=== PATIENT | male | born 1975 | race Caucasian/White ===

== ENCOUNTER 2017-10-25 20:52 | Emergency (ER) | payer OTHER ==
[~2017-10-25] VITALS: Ht 182.9 cm; Wt 83.9 kg
[~2017-10-25 20:52] MED LIST: ALPR1 PO; BETA BLOCKER; BUPR1 PO; BUPR150T2; BUPR150T2 PO; BUSP10 PO; BUSP15 PO; Bactrim Ds Tab1 EACH PO; CEPH500 PO; CLON.1 PO; CLON.2 PO; CLON.5; CLON.5 PO; CLON1 PO; CLON2; CLON2 PO; DIAZ5 PO; DIVA125EC PO; DIVA500EC PO; DIVA500ER PO; ESOM20; GABA100 PO; GABA300; GABA300 PO; Gummi Bear Mul1 EACH PO; HARVONI 90-4001 EACH PO; HYDACE5; HYDACE5 PO; HYDPAM25 PO; HYDPAM50 PO; IBUP600 PO; IBUP800 PO; Kristalose20 GM PO; LACT10SY PO; LAMO5 PO; LITH300C PO; LORA2 PO; Lotrimin Ultra12 GM TP; METH10 PO; METH40 PO; METO25ER PO; METO50 PO; NAPR500 PO; OMEP20ER PO; ONDA4 PO; Omeprazole20 M1 PO; PENVK250 PO; PROM25 PO; QUET100; RXPENVK250 PO; Robaxin-750750 MG PO; SUBTEX PO; SULTRIDS PO; TOPI50 PO; TRAM50 PO; Xanax PO; Zanaflex2 M1 PO
[2017-10-27] MEDS ORDERED: RIFA550T2 (09:13)
[2017-10-27] MEDS ORDERED: Inderal40 MG (09:13)
== END 2017-10-26 02:48 | disposition home or self-care (01) ==
LOC: ER 20:52
DX: G89.29 Other chronic pain (principal); M54.9 Dorsalgia, unspecified; Z88.8 Allergy status to other drugs, medicaments and biological substances; Z79.899 Other long term (current) drug therapy; Z87.891 Personal history of nicotine dependence
CPT/HCPCS: 96372; 99283; J1885

== ENCOUNTER 2017-10-27 08:06 | Emergency (ER) | payer OTHER ==
[~2017-10-27] VITALS: Ht 182.9 cm; Wt 83.9 kg
[2017-10-27] MEDS ORDERED: Inderal40 MG (09:13)
[2017-10-27] MEDS ORDERED: RIFA550T2 (09:13)
[2017-10-27 09:38] LABS: BASOPHILS ABSOLUTE AUTO 0.02 K/mm3 (0.00-0.23); BASOPHILS PERCENT AUTO 0 % (0-2); EOSINOPHILS ABSOLUTE AUTO 0.01 K/mm3 (0.00-0.68); EOSINOPHILS PERCENT AUTO 0 % (0-6); Hematocrit 32.2 % (37.0-53.0); IMMATURE GRAN ABSOLUTE AUTO 0.06 K/mm3 (0.00-0.10); IMMATURE GRAN PERCENT AUTO 0 % (0-1); LYMPHOCYTES ABSOLUTE AUTO 0.61 K/mm3 (0.84-5.20); LYMPHOCYTES PERCENT AUTO 4 % (21-46); MONOCYTES ABSOLUTE AUTO 0.92 K/mm3 (0.16-1.47); MONOCYTES PERCENT AUTO 5 % (4-13); Mean Corpuscular HGB 28.5 pg (26.0-34.0); Mean Corpuscular HGB Conc 34.2 g/dL (31.5-36.5); Mean Corpuscular Volume 83 fL (80-100); Mean Platelet Volume 8.9 fL (9.1-12.4); NEUTROPHILS ABSOLUTE AUTO 15.73 K/mm3 (1.96-9.15); NEUTROPHILS PERCENT AUTO 91 % (41-73); Platelet Count 101 K/mm3 (150-400); RDW Coefficient Variation 15.6 % (11.7-14.2); RDW Standard Deviation 47.5 fL (35.1-46.3); Red Blood Cell Count 3.86 M/mm3 (4.30-5.90); White Blood Cell Count 17.35 K/mm3 (4.00-11.30)
[2017-10-27 09:52] LABS: Alanine Aminotransfer (ALT/SGP 71 U/L (12-78); Albumin/Globulin Ratio 0.6 (0.8-1.8); Alk Phos 344 U/L (50-136); Anion Gap 8 mmol/L (6-16); Aspartate Aminotrans (AST/SGOT 87 U/L (12-37); Blood Urea Nitrogen 8 mg/dL (8-24); Bun/Creatinine Ratio 18.7 (12.0-20.0); CO2, Blood 27 mmol/L (21-32); Calcium, Blood 8.5 mg/dL (8.5-10.1); Chloride, Blood 94 mmol/L (98-108); Creatinine, Blood 0.43 mg/dL (0.60-1.20); Globulin, Blood 5.2 g/dL (2.2-4.0); Glomerular Filtration Rate >60 (60-); Glucose, Blood 95 mg/dL (70-99); Potassium, Blood 3.9 mmol/L (3.5-5.5); Sodium, Blood 129 mmol/L (136-145); Total Protein, Blood 8.2 g/dL (6.4-8.2)
[2017-10-27 10:56] LABS: International Normalized Ratio 1.52
== END 2017-10-27 18:23 | disposition short-term general hospital (02) ==
LOC: ER 08:06
PROVIDERS: Physician Assistant
DX: M46.24 Osteomyelitis of vertebra, thoracic region (principal); M46.44 Discitis, unspecified, thoracic region; M48.04 Spinal stenosis, thoracic region; E87.1 Hypo-osmolality and hyponatremia; R74.0 Nonspecific elevation of levels of transaminase and lactic acid dehydrogenase [LDH]; Z88.8 Allergy status to other drugs, medicaments and biological substances; Z79.899 Other long term (current) drug therapy; F41.9 Anxiety disorder, unspecified; F43.10 Post-traumatic stress disorder, unspecified; Z87.891 Personal history of nicotine dependence
CPT/HCPCS: 36415; 72146; 72148; 80053; 82140; 85025; 85610; 85651; 87040; 87077; 87186; 96374; 96376; 99285; J2060; J2543; J3370; J7050

== ENCOUNTER → 2017-12-08 | Outpatient (CLI) | payer OTHER ==
[~2017-12-08] MED LIST changes: +Inderal40 MG; +RIFA550T2
[2017-12-08 16:22] LABS: Hematocrit 30.3 % (37.0-53.0); Hemoglobin 9.7 g/dL (13.5-17.5); Mean Corpuscular HGB 26.1 pg (26.0-34.0); Mean Corpuscular Volume 82 fL (80-100); Mean Platelet Volume 10.2 fL (9.1-12.4); Platelet Count 88 K/mm3 (150-400); RDW Coefficient Variation 14.4 % (11.7-14.2); RDW Standard Deviation 42.6 fL (35.1-46.3); Red Blood Cell Count 3.71 M/mm3 (4.30-5.90)
[2017-12-08 16:27] LABS: Alanine Aminotransfer (ALT/SGP 25 U/L (12-78); Albumin, Blood 2.4 g/dL (3.4-5.0); Albumin/Globulin Ratio 0.5 (0.8-1.8); Alk Phos 233 U/L (50-136); Anion Gap 6 mmol/L (6-16); Aspartate Aminotrans (AST/SGOT 34 U/L (12-37); Bilirubin, Total 0.7 mg/dL (0.1-1.0); Blood Urea Nitrogen 5 mg/dL (8-24); Bun/Creatinine Ratio 13.3 (12.0-20.0); C-REACTIVE PROTEIN, EXT RANGE 0.617 mg/dL (0.000-0.300); CO2, Blood 30 mmol/L (21-32); Calcium, Blood 7.8 mg/dL (8.5-10.1); Chloride, Blood 101 mmol/L (98-108); Creatinine, Blood 0.38 mg/dL (0.60-1.20); Globulin, Blood 5.3 g/dL (2.2-4.0); Glomerular Filtration Rate >60 (60-); Glucose, Blood 87 mg/dL (70-99); Sodium, Blood 137 mmol/L (136-145); Total Protein, Blood 7.7 g/dL (6.4-8.2)
== END ==
LOC: LAB RH 15:05
PROVIDERS: Nurse Practitioner Family
DX: M46.20 Osteomyelitis of vertebra, site unspecified (principal)
CPT/HCPCS: 80053; 85027; 85651; 86140

== ENCOUNTER 2017-12-23 11:28 | Observation (INO) | payer OTHER ==
[~2017-12-23] VITALS: Ht 182.9 cm; Wt 90.7 kg
[2017-12-23 12:26] LABS: BASOPHILS ABSOLUTE AUTO 0.02 K/mm3 (0.00-0.23); BASOPHILS PERCENT AUTO 1 % (0-2); EOSINOPHILS ABSOLUTE AUTO 0.08 K/mm3 (0.00-0.68); EOSINOPHILS PERCENT AUTO 3 % (0-6); Hematocrit 31.5 % (37.0-53.0); Hemoglobin 9.7 g/dL (13.5-17.5); IMMATURE GRAN ABSOLUTE AUTO 0.01 K/mm3 (0.00-0.10); IMMATURE GRAN PERCENT AUTO 0 % (0-1); LYMPHOCYTES ABSOLUTE AUTO 0.75 K/mm3 (0.84-5.20); LYMPHOCYTES PERCENT AUTO 31 % (21-46); MONOCYTES ABSOLUTE AUTO 0.21 K/mm3 (0.16-1.47); MONOCYTES PERCENT AUTO 9 % (4-13); Mean Corpuscular HGB Conc 30.8 g/dL (31.5-36.5); Mean Corpuscular Volume 81 fL (80-100); Mean Platelet Volume 9.8 fL (9.1-12.4); NEUTROPHILS ABSOLUTE AUTO 1.33 K/mm3 (1.96-9.15); NEUTROPHILS PERCENT AUTO 55 % (41-73); Platelet Count 61 K/mm3 (150-400); RDW Coefficient Variation 14.9 % (11.7-14.2); RDW Standard Deviation 43.5 fL (35.1-46.3); Red Blood Cell Count 3.88 M/mm3 (4.30-5.90)
[2017-12-23 12:49] LABS: Ethanol (Alcohol), Blood, Med <3 mg/dL; Salicylate <1.7 mg/dL (2.8-20.0)
[2017-12-23 12:55] LABS: Alanine Aminotransfer (ALT/SGP 23 U/L (12-78); Albumin/Globulin Ratio 0.6 (0.8-1.8); Alk Phos 166 U/L (50-136); Anion Gap 7 mmol/L (6-16); Aspartate Aminotrans (AST/SGOT 26 U/L (12-37); Bilirubin, Total 0.5 mg/dL (0.1-1.0); Blood Urea Nitrogen 7 mg/dL (8-24); Bun/Creatinine Ratio 15.8 (12.0-20.0); CO2, Blood 28 mmol/L (21-32); Calcium, Blood 7.8 mg/dL (8.5-10.1); Chloride, Blood 103 mmol/L (98-108); Creatinine, Blood 0.44 mg/dL (0.60-1.20); Globulin, Blood 4.9 g/dL (2.2-4.0); Glomerular Filtration Rate >60 (60-); Glucose, Blood 62 mg/dL (70-99); Sodium, Blood 138 mmol/L (136-145); Total Protein, Blood 7.9 g/dL (6.4-8.2)
[2017-12-23 12:58] LABS: Acetaminophen, Random <2.0 ug/mL (10.0-30.0)
== END 2017-12-23 15:01 | disposition home or self-care (01) ==
LOC: ER 11:28 → EOR 11:29
PROVIDERS: Emergency Medicine
DX: R41.82 Altered mental status, unspecified (principal); F41.9 Anxiety disorder, unspecified; G25.81 Restless legs syndrome; F43.10 Post-traumatic stress disorder, unspecified; K74.60 Unspecified cirrhosis of liver; K76.6 Portal hypertension; K31.89 Other diseases of stomach and duodenum; Z86.19 Personal history of other infectious and parasitic diseases
CPT/HCPCS: 36415; 80053; 84443; 85025; 99285; G0378; G0480

== ENCOUNTER → 2018-10-12 | Outpatient (CLI) | payer OTHER | END | disposition home or self-care (01) | LOC: LAB 09:34 → LAB SHORT 09:34 | DX: Z51.81 Encounter for therapeutic drug level monitoring (principal); F90.2 Attention-deficit hyperactivity disorder, combined type; Z79.899 Other long term (current) drug therapy | CPT/HCPCS: G0480 ==

== ENCOUNTER 2018-12-08 20:03 | Emergency (ER) | payer OTHER ==
[~2018-12-08] VITALS: Ht 182.9 cm; Wt 83.9 kg
[2018-12-08] MEDS ORDERED: KETO10 PO (21:13)
== END 2018-12-08 21:35 | disposition home or self-care (01) ==
LOC: ER 20:03
DX: S20.211A Contusion of right front wall of thorax, initial encounter (principal); F41.9 Anxiety disorder, unspecified; Z79.899 Other long term (current) drug therapy; X58.XXXA Exposure to other specified factors, initial encounter
CPT/HCPCS: 71111; 99283-25

== ENCOUNTER 2018-12-15 23:32 | Emergency (ER) | payer OTHER ==
[~2018-12-15] VITALS: Ht 182.9 cm; Wt 83.9 kg
[~2018-12-15 23:32] MED LIST changes: +KETO10 PO
[2018-12-17] MEDS ORDERED: NAPR550 PO (15:36)
== END 2018-12-16 03:21 | disposition home or self-care (01) ==
LOC: ER 23:32
DX: R10.9 Unspecified abdominal pain (principal); R07.81 Pleurodynia; F41.9 Anxiety disorder, unspecified; Z79.899 Other long term (current) drug therapy; Z87.891 Personal history of nicotine dependence
CPT/HCPCS: 99283

== ENCOUNTER 2018-12-17 12:54 | Emergency (ER) | payer OTHER ==
[~2018-12-17] VITALS: Ht 182.9 cm; Wt 83.9 kg
[2018-12-17 13:58] LABS: BASOPHILS ABSOLUTE AUTO 0.05 K/mm3 (0.00-0.23); BASOPHILS PERCENT AUTO 0 % (0-2); EOSINOPHILS ABSOLUTE AUTO 0.02 K/mm3 (0.00-0.68); EOSINOPHILS PERCENT AUTO 0 % (0-6); Hematocrit 40.1 % (37.0-53.0); Hemoglobin 13.9 g/dL (13.5-17.5); IMMATURE GRAN ABSOLUTE AUTO 0.15 K/mm3 (0.00-0.10); IMMATURE GRAN PERCENT AUTO 1 % (0-1); LYMPHOCYTES ABSOLUTE AUTO 1.44 K/mm3 (0.84-5.20); LYMPHOCYTES PERCENT AUTO 8 % (21-46); MONOCYTES PERCENT AUTO 10 % (4-13); Mean Corpuscular HGB 28.1 pg (26.0-34.0); Mean Corpuscular HGB Conc 34.7 g/dL (31.5-36.5); Mean Corpuscular Volume 81 fL (80-100); NEUTROPHILS ABSOLUTE AUTO 14.88 K/mm3 (1.96-9.15); NEUTROPHILS PERCENT AUTO 81 % (41-73); RDW Coefficient Variation 15.2 % (11.7-14.2); RDW Standard Deviation 44.8 fL (35.1-46.3); Red Blood Cell Count 4.94 M/mm3 (4.30-5.90); White Blood Cell Count 18.44 K/mm3 (4.00-11.30)
[2018-12-17 14:03] LABS: Alanine Aminotransfer (ALT/SGP 83 U/L (12-78); Albumin, Blood 3.9 g/dL (3.4-5.0); Alk Phos 164 U/L (50-136); Anion Gap 9 mmol/L (6-16); Aspartate Aminotrans (AST/SGOT 72 U/L (12-37); Bilirubin, Total 1.9 mg/dL (0.1-1.0); Blood Urea Nitrogen 15 mg/dL (8-24); Bun/Creatinine Ratio 20.2 (12.0-20.0); CO2, Blood 25 mmol/L (21-32); Calcium, Blood 8.5 mg/dL (8.5-10.1); Chloride, Blood 94 mmol/L (98-108); Creatinine, Blood 0.74 mg/dL (0.60-1.20); Globulin, Blood 3.9 g/dL (2.2-4.0); Glomerular Filtration Rate >60 (60-); Glucose, Blood 113 mg/dL (70-99); Potassium, Blood 3.6 mmol/L (3.5-5.5); Sodium, Blood 128 mmol/L (136-145); Total Protein, Blood 7.8 g/dL (6.4-8.2)
[2018-12-17 14:27] LABS: Mean Platelet Volume 10.7 fL (9.1-12.4); Platelet Count 81 K/mm3 (150-400)
[2018-12-17] MEDS ORDERED: NAPR550 PO (15:36)
== END 2018-12-17 15:50 | disposition home or self-care (01) ==
LOC: ER 12:54
PROVIDERS: Physician Assistant
DX: S22.31XA Fracture of one rib, right side, initial encounter for closed fracture (principal); X58.XXXA Exposure to other specified factors, initial encounter; F41.9 Anxiety disorder, unspecified; F43.10 Post-traumatic stress disorder, unspecified
CPT/HCPCS: 36415; 74176; 80053; 83690; 85025; 93005; 93010; J1200; J1630

== ENCOUNTER 2018-12-23 08:59 | Inpatient (IN) | payer OTHER ==
[~2018-12-23] VITALS: Ht 182.9 cm; Wt 88.3 kg
[~2018-12-23 08:59] MED LIST changes: +NAPR550 PO
[2018-12-23 09:45] LABS: BASOPHILS ABSOLUTE AUTO 0.09 K/mm3 (0.00-0.23); BASOPHILS PERCENT AUTO 0 % (0-2); EOSINOPHILS PERCENT AUTO 0 % (0-6); Hematocrit 44.2 % (37.0-53.0); Hemoglobin 15.1 g/dL (13.5-17.5); IMMATURE GRAN ABSOLUTE AUTO 0.87 K/mm3 (0.00-0.10); IMMATURE GRAN PERCENT AUTO 3 % (0-1); LYMPHOCYTES ABSOLUTE AUTO 1.17 K/mm3 (0.84-5.20); LYMPHOCYTES PERCENT AUTO 4 % (21-46); MONOCYTES ABSOLUTE AUTO 1.97 K/mm3 (0.16-1.47); MONOCYTES PERCENT AUTO 7 % (4-13); Mean Corpuscular HGB 27.5 pg (26.0-34.0); Mean Corpuscular HGB Conc 34.2 g/dL (31.5-36.5); Mean Corpuscular Volume 80 fL (80-100); Mean Platelet Volume 9.3 fL (9.1-12.4); NEUTROPHILS ABSOLUTE AUTO 24.97 K/mm3 (1.96-9.15); NEUTROPHILS PERCENT AUTO 86 % (41-73); Platelet Count 239 K/mm3 (150-400); RDW Coefficient Variation 15.2 % (11.7-14.2); RDW Standard Deviation 44.1 fL (35.1-46.3); White Blood Cell Count 29.07 K/mm3 (4.00-11.30)
[2018-12-23 10:12] LABS: Alanine Aminotransfer (ALT/SGP 190 U/L (12-78); Albumin, Blood 2.9 g/dL (3.4-5.0); Albumin/Globulin Ratio 0.5 (0.8-1.8); Alk Phos 339 U/L (50-136); Anion Gap 11 mmol/L (6-16); Aspartate Aminotrans (AST/SGOT 162 U/L (12-37); Bilirubin, Total 2.4 mg/dL (0.1-1.0); Blood Urea Nitrogen 18 mg/dL (8-24); Bun/Creatinine Ratio 42.6 (12.0-20.0); CO2, Blood 23 mmol/L (21-32); Chloride, Blood 98 mmol/L (98-108); Creatinine, Blood 0.42 mg/dL (0.60-1.20); Globulin, Blood 5.3 g/dL (2.2-4.0); Glomerular Filtration Rate >60 (60-); Glucose, Blood 99 mg/dL (70-99); Potassium, Blood 3.6 mmol/L (3.5-5.5); Sodium, Blood 132 mmol/L (136-145); Total Protein, Blood 8.2 g/dL (6.4-8.2)
[2018-12-23 10:56] LABS: Source, Urine Clean Catch
[2018-12-23 11:05] LABS: Blood, Urine Neg (Neg); Glucose Qualitative, Urine Neg (Neg); Ketones, Urine 1+ (Neg); Leukocyte Esterase, Urine 1+ (Neg); Nitrite, Urine Neg (Neg); Protein, Urine 2+ (Neg); Specific Gravity, Urine 1.015 (1.003-1.022); Urobilinogen, Urine 4+ (Normal)
[2018-12-23 11:18] LABS: Appearance, Urine Clear (Clear); Bilirubin, Urine 2+ (Neg); Color, Urine Yellow (P-Yellow)
[2018-12-23 11:20] LABS: Red Blood Cells, Urine Not Seen /hpf (0-2); White Blood Cells, Urine 0-2 /hpf (0-5)
[2018-12-23 11:21] LABS: Bacteria Few /hpf; Granular Casts 0-2 /lpf (0); Mucus Light (0-Heavy); Squamous Epithelial Cells Rare /hpf (Few)
[2018-12-23] MEDS ORDERED: FLUO10 (12:24)
[2018-12-23] MEDS ORDERED: BACL10 (12:25)
--- NOTE | 2018-12-23 22:00 | NUR ---
PCU ADMIT PT BROUGHT TO PCU RM 11 FROM THE ER BY ANA @ APPROX 2044. PT SLID OVER FROM [facility] TO HOSPITAL BED. PT STATES HAVING BEEN IN BED THE LAST 5 DAYS UNABLE TO GET UP. PT STATES USING A WALKER AT BASELINE FOR AMBULATION. PT A&O X4, COOPERATIVE. PT C/O PAIN IN LEGS AND HIPS. NARCOTICS DC'D IN ER. PT ADMITS TO USING HEROIN LAST NIGHT AND STATES "I HADN'T DONE IT IN A LONG TIME. IT'S NOT SOMETHING I DO OFTEN." PT STATES SMOKING 5-6 CIGARETTS/DAY. NICOTINE PATCH PROVIDED PER PT REQUEST. IV FLUIDS INFUSING PER ORDERS. PT ORIENTED TO UNIT AND ROOM. WILL CONTINUE TO MONITOR AND PROVIDE CARE.
--- NOTE | 2018-12-24 05:10 | NUR ---
SHIFT SUMMARY PT A&O X4, CALM & COOPERATIVE W/ CARE, TEARFUL AT TIMES. PT C/O PAIN IN LEGS AND HIPS, AND STATES MUSCLES TO BE "LOCKED UP." PT STATES NOT HAVING BEEN OUT OF BED IN LAST 5 DAYS. PT IN NEED OF ENCOURAGEMENT TO REPOSITION AND MOVE. EDUCATION PROVIDED ON PRESSURE ULCER PREVENTION. PT TX'D FOR PAIN PER EMAR. PT REQUESTING REPEAT OF MEDICATIONS SHORTLY AFTER ADMINISTRATION. PT TEARFUL AND STATES MEDICATION "NOT ENOUGH" AND ASKS "WHAT AM I GOING TO DO?" COMFORT PROVIDED ALONG W/ ALTERNATING PRN AND SCHEDULED MEDICATIONS. OTHERWISE PT VSS. LUNG SOUNDS CLEAR T/O, DIM IN BASES. SPO2 > 92% ON RA. MONITOR SHOWS NSR, HR 70'S-80'S. NS GTT INFUSING PER ORDERS. WILL CONTINUE TO MONITOR AND PROVIDE CARE UNTIL REPORT OFF TO DAY SHIFT RN.
[2018-12-24 06:17] LABS: BASOPHILS ABSOLUTE AUTO 0.02 K/mm3 (0.00-0.23); BASOPHILS PERCENT AUTO 0 % (0-2); EOSINOPHILS ABSOLUTE AUTO 0.07 K/mm3 (0.00-0.68); EOSINOPHILS PERCENT AUTO 0 % (0-6); Hematocrit 35.2 % (37.0-53.0); Hemoglobin 11.7 g/dL (13.5-17.5); IMMATURE GRAN ABSOLUTE AUTO 0.23 K/mm3 (0.00-0.10); IMMATURE GRAN PERCENT AUTO 1 % (0-1); LYMPHOCYTES ABSOLUTE AUTO 1.59 K/mm3 (0.84-5.20); LYMPHOCYTES PERCENT AUTO 9 % (21-46); MONOCYTES ABSOLUTE AUTO 1.36 K/mm3 (0.16-1.47); MONOCYTES PERCENT AUTO 8 % (4-13); Mean Corpuscular HGB 27.8 pg (26.0-34.0); Mean Corpuscular HGB Conc 33.2 g/dL (31.5-36.5); Mean Platelet Volume 9.1 fL (9.1-12.4); NEUTROPHILS ABSOLUTE AUTO 13.69 K/mm3 (1.96-9.15); NEUTROPHILS PERCENT AUTO 81 % (41-73); Platelet Count 151 K/mm3 (150-400); RDW Coefficient Variation 15.3 % (11.7-14.2); RDW Standard Deviation 46.5 fL (35.1-46.3); Red Blood Cell Count 4.21 M/mm3 (4.30-5.90); White Blood Cell Count 16.96 K/mm3 (4.00-11.30)
[2018-12-24 06:18] LABS: Mean Corpuscular Volume 84 fL (80-100)
[2018-12-24 06:43] LABS: Alanine Aminotransfer (ALT/SGP 137 U/L (12-78); Albumin, Blood 2.1 g/dL (3.4-5.0); Albumin/Globulin Ratio 0.5 (0.8-1.8); Alk Phos 277 U/L (50-136); Anion Gap 6 mmol/L (6-16); Aspartate Aminotrans (AST/SGOT 129 U/L (12-37); Blood Urea Nitrogen 16 mg/dL (8-24); Bun/Creatinine Ratio 47.9 (12.0-20.0); CO2, Blood 25 mmol/L (21-32); Calcium, Blood 7.8 mg/dL (8.5-10.1); Chloride, Blood 103 mmol/L (98-108); Creatinine, Blood 0.33 mg/dL (0.60-1.20); Globulin, Blood 4.2 g/dL (2.2-4.0); Glomerular Filtration Rate >60 (60-); Glucose, Blood 107 mg/dL (70-99); Sodium, Blood 134 mmol/L (136-145); Total Protein, Blood 6.3 g/dL (6.4-8.2)
--- NOTE | 2018-12-24 08:00 | NUR ---
Assumed Care: Assumed care of pt at approx 0700. VSS. In no apparent sign of distress. Pt is A&Ox4 but drowsy - falls asleep while answering questions at times. Pt c/o 9/10 constant pain to hips and back. Pt calls appropriately. C/o difficulty moving extremities but pt is able to DUNCAN. Pt needs encouragement to move and reposition in bed, and will be assisted PRN. See shift assessment for detailed assessment. Pt currently sitting up in bed eating breakfast. Denies any other acute complaints or requests at this time. Will continue to monitor.
[2018-12-24 11:18] LABS: U Amphetamine Screen DETECTED; U Barbituate Screen Not Detected; U Benzodiazapine Screen DETECTED; U Buprenorphine Screen Not Detected; U Cannabinoids Screen DETECTED; U Cocaine Screen Not Detected; U Methadone Screen DETECTED; U Methamphetamine Screen DETECTED; U Opiates Screen DETECTED; U Oxycodone Screen Not Detected; U Phencyclidine Screen Not Detected; U Propoxyphene Screen Not Detected
[2018-12-24 11:48] LABS: Vancomycin, Trough 7.4 ug/mL (5.0-10.0)
--- NOTE | 2018-12-24 19:48 | NUR ---
Shift Summary No acute changes since initial shift assessment. VSS. In no apparent sign of distress. Pt has remained A&Ox4. Calls appropriately and repositions self. EGD completed today and Dr. Mcginnis to place new orders for ulcers found during study. Pt on RA-2L O2 NC t/o the shift depending on activity and is on 2L O2 NC post study. Pt has otherwise had an uneventful day. Pt has not had any more hemoptysis. Pt has at times coughed up red tinged sputum - sample sent today. No acute changes or events on tele. Pt is currenlty resting in bed with call light within reach and bed alarm on. Tolerating PO intake well. Denies any further questions, complaints or requests at this time. Report given to jack SANTIAGO.
[2018-12-25 06:02] LABS: BASOPHILS ABSOLUTE AUTO 0.02 K/mm3 (0.00-0.23); BASOPHILS PERCENT AUTO 0 % (0-2); EOSINOPHILS ABSOLUTE AUTO 0.08 K/mm3 (0.00-0.68); EOSINOPHILS PERCENT AUTO 1 % (0-6); Hemoglobin 11.1 g/dL (13.5-17.5); IMMATURE GRAN ABSOLUTE AUTO 0.12 K/mm3 (0.00-0.10); IMMATURE GRAN PERCENT AUTO 1 % (0-1); LYMPHOCYTES ABSOLUTE AUTO 1.08 K/mm3 (0.84-5.20); LYMPHOCYTES PERCENT AUTO 12 % (21-46); MONOCYTES ABSOLUTE AUTO 0.65 K/mm3 (0.16-1.47); MONOCYTES PERCENT AUTO 7 % (4-13); Mean Corpuscular HGB 27.7 pg (26.0-34.0); Mean Corpuscular HGB Conc 32.6 g/dL (31.5-36.5); Mean Corpuscular Volume 85 fL (80-100); Mean Platelet Volume 8.6 fL (9.1-12.4); NEUTROPHILS ABSOLUTE AUTO 7.07 K/mm3 (1.96-9.15); NEUTROPHILS PERCENT AUTO 78 % (41-73); Platelet Count 139 K/mm3 (150-400); RDW Coefficient Variation 14.7 % (11.7-14.2); RDW Standard Deviation 46.1 fL (35.1-46.3); Red Blood Cell Count 4.01 M/mm3 (4.30-5.90); White Blood Cell Count 9.02 K/mm3 (4.00-11.30)
[2018-12-25 06:26] LABS: Alanine Aminotransfer (ALT/SGP 106 U/L (12-78); Albumin, Blood 2.1 g/dL (3.4-5.0); Albumin/Globulin Ratio 0.5 (0.8-1.8); Alk Phos 252 U/L (50-136); Anion Gap 6 mmol/L (6-16); Aspartate Aminotrans (AST/SGOT 77 U/L (12-37); Blood Urea Nitrogen 13 mg/dL (8-24); Bun/Creatinine Ratio 32.1 (12.0-20.0); CO2, Blood 29 mmol/L (21-32); Calcium, Blood 7.9 mg/dL (8.5-10.1); Chloride, Blood 100 mmol/L (98-108); Creatinine, Blood 0.41 mg/dL (0.60-1.20); Globulin, Blood 4.3 g/dL (2.2-4.0); Glomerular Filtration Rate >60 (60-); Glucose, Blood 89 mg/dL (70-99); Potassium, Blood 4.2 mmol/L (3.5-5.5); Sodium, Blood 135 mmol/L (136-145); Total Protein, Blood 6.4 g/dL (6.4-8.2)
--- NOTE | 2018-12-25 07:29 | NUR ---
SHIFT SUMMARY PT A&O X4, CALM AND COOPERATIVE W/ EPISODES OF ANXIETY AND TEARFULNESS. PT C/O 08/03 PAIN T/O SHIFT. PT'D MEDICATED PER EMAR W/ MINIMAL RELIEF. NO OPIATE MEDICATIONS ORDERED FOR PT AT THIS TIME. PT ANXIOUS, ASKING "HOW LONG AM I GOING TO BE LEFT LIKE THIS?" TIME SPENT CONVERSING W/ PT DISCUSSING PLAN OF CARE AND AWAITING ORDERED ORTHO CONSULT. PT LUNG SOUNDS CLEAR T/O, SPO2 > 92% ON RA. MONITOR SHOWS NSR, HR 60'S-80'S. PT VSS. REPORT GIVEN TO DAY SHIFT RN.
--- NOTE | 2018-12-25 08:51 | NUR ---
Assumed Care: Assumed care of pt at approx 0700. VSS. In no apparent sign of distress. Pt is A&Ox4 but experiences some intermittent drowsiness. Calls appropriately and needs lots of motivation to reposition in bed, but is moving better today. C/o continued pain today in hips and knees this AM. See shift assessment for detailed assessment. Denies any SOB or cough. Pt is currently resting in bed with call light within reach. Denies any further questions, complaints or requests at this time except for more pain medication. Will continue to monitor.
[2018-12-25 11:48] LABS: Vancomycin, Trough 10.3 ug/mL (5.0-10.0)
--- NOTE | 2018-12-25 16:03 | NUR ---
Transfer: Pt transferred to room 301 at approx 1430. VSS. In no apparent sign of distress at time of transfer. No acute changes since initial shift assessment. Istrate in to see pt and will place orders for medications once he reviews the pts chart. Pt continues to behave in manner that resembles being under the influence of substances and has visitors t/o the day yesterday and today. Pt now supervised when he has visitiors in the room for pt safety. Pt denies any further questions, complaints or requests at this time. Report called to Kevin SANTIAGO.
--- NOTE | 2018-12-25 18:06 | NUR ---
PCU 11 TRANSFER TO 301 APPROX 1500 TODAY. PT IS A/O X4, STATE UNABLE TO AMBULATE @ THIS TIME, STATE "CRAMPING" MUSCLE PAIN BLE, PRN ROBAXIN GIVEN FOR RELEIF. DX SEPSIS, WBC WNL TODAY, VSS, AFEBRILE. IV NS CONTINUES @ 150 ML/HR. IV ANTIBX CONTINUE. HEAD ANIMAL KEEPER REPORT THAT SHE CALLED CONSULT TO DR ARIZMENDI TODAY. PT ASSISTED WITH COMFORT, PLEASANT APPRECIATIVE AFFECT.
--- NOTE | 2018-12-26 04:43 | NUR ---
SHIFT SUMMARY NO ACUTE CHANGES. PT PLEASANT AND COOPERATIVE. EMOTIONAL AND TEARFUL AT TIMES ABOUT CURRENT MEDICAL CONDITIONS. PT REPORTS THAT HE IS UNABLE TO WALK AT THIS TIME. REMAINED IN BED THIS SHIFT. REPORTS PAIN THROUGHOUT BODY DESCRIBED BEING LOCATED "IN HIS BONES". PT HAS A HX OF IV DRUG USE AND HAS A SPECIFIC ORDER TO NOT HAVE ANY OPIATES. TYLENOL AND ROBAXIN GIVEN ORDERED. PT SLEEPY MUCH OF THE SHIFT. SLEPT OFF AND ON THROUGHOUT THE NIGHT. PT LOOKING FORWARD TO LAND USE PLANNER MEETING WITH HIM TODAY TO MAKE PLANS FOR WHEN HE IS READY TO DISCHARGE. PT IS HOPING TO DISCHARGE TO REHAB. VSS. NO BM'S THIS SHIFT. REAVES CATHETER IN PLACE, PATENT AND DRAINING. PT RESTING IN BED AT THIS TIME.
[2018-12-26 08:44] LABS: BASOPHILS ABSOLUTE AUTO 0.02 K/mm3 (0.00-0.23); BASOPHILS PERCENT AUTO 0 % (0-2); EOSINOPHILS ABSOLUTE AUTO 0.05 K/mm3 (0.00-0.68); EOSINOPHILS PERCENT AUTO 1 % (0-6); Hematocrit 33.9 % (37.0-53.0); IMMATURE GRAN ABSOLUTE AUTO 0.05 K/mm3 (0.00-0.10); IMMATURE GRAN PERCENT AUTO 1 % (0-1); LYMPHOCYTES ABSOLUTE AUTO 0.86 K/mm3 (0.84-5.20); LYMPHOCYTES PERCENT AUTO 14 % (21-46); MONOCYTES ABSOLUTE AUTO 0.51 K/mm3 (0.16-1.47); MONOCYTES PERCENT AUTO 8 % (4-13); Mean Corpuscular HGB 27.2 pg (26.0-34.0); Mean Corpuscular HGB Conc 32.4 g/dL (31.5-36.5); Mean Corpuscular Volume 84 fL (80-100); Mean Platelet Volume 8.7 fL (9.1-12.4); NEUTROPHILS ABSOLUTE AUTO 4.62 K/mm3 (1.96-9.15); NEUTROPHILS PERCENT AUTO 76 % (41-73); Platelet Count 141 K/mm3 (150-400); RDW Coefficient Variation 14.5 % (11.7-14.2); RDW Standard Deviation 44.5 fL (35.1-46.3); Red Blood Cell Count 4.05 M/mm3 (4.30-5.90); White Blood Cell Count 6.11 K/mm3 (4.00-11.30)
[2018-12-26 09:01] LABS: Alanine Aminotransfer (ALT/SGP 86 U/L (12-78); Albumin/Globulin Ratio 0.5 (0.8-1.8); Alk Phos 249 U/L (50-136); Anion Gap 5 mmol/L (6-16); Aspartate Aminotrans (AST/SGOT 56 U/L (12-37); Bilirubin, Total 0.5 mg/dL (0.1-1.0); Blood Urea Nitrogen 8 mg/dL (8-24); Bun/Creatinine Ratio 25.4 (12.0-20.0); CO2, Blood 31 mmol/L (21-32); Calcium, Blood 7.7 mg/dL (8.5-10.1); Chloride, Blood 99 mmol/L (98-108); Creatinine, Blood 0.32 mg/dL (0.60-1.20); Globulin, Blood 4.4 g/dL (2.2-4.0); Glomerular Filtration Rate >60 (60-); Glucose, Blood 126 mg/dL (70-99); Potassium, Blood 3.8 mmol/L (3.5-5.5); Sodium, Blood 135 mmol/L (136-145); Total Protein, Blood 6.4 g/dL (6.4-8.2)
[2018-12-26 11:39] LABS: Vancomycin, Trough 9.2 ug/mL (5.0-10.0)
--- NOTE | 2018-12-26 14:31 | NUR ---
PT REAVES NOT REMOVED- SPOKE TO PT ABOUT REAVES REMOVAL AND HE BECAME VERY ANXIOUS AND FEARFUL; BEGAN TO CRY ABOUT FEAR OF NOT BEING ABLE TO PEE. SPOKE TO DR SELBY AND HE STATED OK TO LEAVE REAVES IN PLACE AT THIS TIME.
--- NOTE | 2018-12-26 17:28 | NUR ---
Today (12/26/18) this patient gave this chief nursing executive verbal consent to access necessary information and care for patient tomorrow (12/27/18) from [phone]
--- NOTE | 2018-12-26 19:31 | NUR ---
SHIFT SUMMARY- PT VERY TEARFUL AND WHEN FACED WITH THE PLANNED MRI OF THE NECK PT STATED HE SHOULD HAVE IV ATIVAN AND DILAUDID "THATS WHAT THEY DID LAST TIME." PT HAS Hx SUBSTANCE ABUSE AND IS NOT CURRENTLY RECIEVING ANY OPIATES. SPOKE TO DR SELBY, PT VERY LETHARGIC AND OFTEN FALLS ASLEEP WHILE TALKING TO STAFF, PT STATED HIS HOME DOSE OF GABAPENTIN IS [address] CHANGED GABAPENTIN ORDER TO MATCH THE HOME DOSE. PT RECIEVING PO TYLENOL AND METHOCARBOMOL FOR PAIN AND MUSCLE CRAMPING.
--- NOTE | 2018-12-27 05:44 | NUR ---
VSS, AFEBRILE, A/O, C/O NECK PAIN/STIFFNESS, AND NUMBNESS BELOW THE WAIST. POWERGLIDE IN R UA IS POSITIONAL AND OCCULDES OFTEN IF HE MOVES HIS ARM. PMHX OF IV DRUG USE PREVENTS NARCOTIC USE FOR PAIN CONTROL. PT SEEKS OUT OPPORTUNITIES TO GAIN ATTENTION FROM STAFF BY MAKING HIS PUMP ALARM REPEATEDLY FOR HOURS. PUMP RARELY ALARMS WHEN PT IS ASLEEP. SLEPT LIGHTLY OFF AND ON ALL NOC.
[2018-12-27 06:45] LABS: BASOPHILS ABSOLUTE AUTO 0.01 K/mm3 (0.00-0.23); BASOPHILS PERCENT AUTO 0 % (0-2); EOSINOPHILS ABSOLUTE AUTO 0.06 K/mm3 (0.00-0.68); EOSINOPHILS PERCENT AUTO 1 % (0-6); Hematocrit 31.9 % (37.0-53.0); Hemoglobin 10.4 g/dL (13.5-17.5); IMMATURE GRAN ABSOLUTE AUTO 0.05 K/mm3 (0.00-0.10); IMMATURE GRAN PERCENT AUTO 1 % (0-1); LYMPHOCYTES ABSOLUTE AUTO 0.73 K/mm3 (0.84-5.20); LYMPHOCYTES PERCENT AUTO 15 % (21-46); MONOCYTES ABSOLUTE AUTO 0.49 K/mm3 (0.16-1.47); MONOCYTES PERCENT AUTO 10 % (4-13); Mean Corpuscular HGB 27.3 pg (26.0-34.0); Mean Corpuscular HGB Conc 32.6 g/dL (31.5-36.5); Mean Corpuscular Volume 84 fL (80-100); Mean Platelet Volume 8.6 fL (9.1-12.4); NEUTROPHILS ABSOLUTE AUTO 3.57 K/mm3 (1.96-9.15); NEUTROPHILS PERCENT AUTO 73 % (41-73); Platelet Count 137 K/mm3 (150-400); RDW Coefficient Variation 14.4 % (11.7-14.2); Red Blood Cell Count 3.81 M/mm3 (4.30-5.90); White Blood Cell Count 4.91 K/mm3 (4.00-11.30)
[2018-12-27 07:10] LABS: Alanine Aminotransfer (ALT/SGP 67 U/L (12-78); Albumin, Blood 1.9 g/dL (3.4-5.0); Albumin/Globulin Ratio 0.4 (0.8-1.8); Alk Phos 224 U/L (50-136); Anion Gap 5 mmol/L (6-16); Aspartate Aminotrans (AST/SGOT 42 U/L (12-37); Bilirubin, Total 0.5 mg/dL (0.1-1.0); Blood Urea Nitrogen 6 mg/dL (8-24); Bun/Creatinine Ratio 19.8 (12.0-20.0); CO2, Blood 31 mmol/L (21-32); Calcium, Blood 7.8 mg/dL (8.5-10.1); Chloride, Blood 101 mmol/L (98-108); Globulin, Blood 4.4 g/dL (2.2-4.0); Glomerular Filtration Rate >60 (60-); Glucose, Blood 113 mg/dL (70-99); Potassium, Blood 3.9 mmol/L (3.5-5.5); Sodium, Blood 137 mmol/L (136-145); Total Protein, Blood 6.3 g/dL (6.4-8.2)
--- NOTE | 2018-12-27 11:49 | NUR ---
PT STATES "ACTUALLY MY NECK FEELS A LOT BETTER, I DON'T WANT TO GO THROUGH AN MRI". REPORTED TO DR. SELBY
[2018-12-27 13:13] LABS: Vancomycin, Trough 1.6 ug/mL (5.0-10.0)
--- NOTE | 2018-12-27 17:59 | NUR ---
SHIFT SUMMARY OX3; OSTEOMYELITIS; INCREASED PAIN WITH MOVEMENT REPORTS "I CAN'T STAND UP NOW" RAEVES DISCONTINUED. HX OF IV DRUG ABUSE. COOPERATIVE, CALM. BEDREST. USING BEDPAN AND URINAL WELL. POSSIBLE DC TO [facility] TOMORROW OR WHEN BED AVAILABLE.
--- NOTE | 2018-12-27 22:58 | NUR ---
PT INSISTS THAT HE CANNOT WALK AND HAS NOT DONE SO FOR A FEW WEEKS. HIS IMAGING STUDIES ARE NEGATIVE FOR OBVIOUS DAMAGE. PT STATES THAT "I'M TRYING TO GET BACK ON METHADONE SO THAT I CAN WALK INTO AN ADDICTION RECOVERY PROGRAM." PT APPEARS TO CONNECT HIS INABILITY TO WALK/MUSCLE SPASMS AND BACK PAIN WITH HIS DESIRE FOR METHODONE. HIS LOGIC IS UNCLEAR AND DIFFICULT TO FOLLOW. AND YET HE MOANS LOUDLY WHEN HE IS ALONE IN HIS ROOM. PT DOES NOT HAVE NARCOTIC MEDICATION FOR PAIN BEAUSE OF HIS PMHX OF IV DRUG USE. METHOCARBIMOL, TYLENOL AND PHENERGAN DO NOT APPEAR TO PROVIDE THE RELIEF THAT HE IS SEEKING. PT WILL ALSO MANIPULATE THE IV TUBING TO MAKE THE PUMP ALARM FREQUENTLY WHILE HE IS AWAKE. THE PUMP DOES NOT ALARM WHILE HE IS ASLEEP. WILL CONTINUE TO MONITOR.
--- NOTE | 2018-12-28 05:14 | NUR ---
VSS, AFEBRILE, A/O, POWERGLIDE IN R UA, C/O INTERMITTENED CRAMPS/SPASMS IN LE AND LOWER BACK. PT REPORTS BEING UNABLE TO STAND OR WALK. PT CAN BE EMOTIONAL AT TIMES, MAKES VAGUE REQUESTS "WHAT KIND OF MEDICATION CAN I GET NOW?" WITHOUT IDENTIFYING THE COMPLAINT FIRST. PT INSISTS THAT HE WAS BEING GIVEN TORADOL IVP BUT THAT MEDICATION HAS NOT BEEN AVAILABLE DURING THIS ADMISSION. PT TOLERATING IV ATBX W/OUT ADVERSE EFFECTS.
[2018-12-28 05:19] LABS: BASOPHILS ABSOLUTE AUTO 0.02 K/mm3 (0.00-0.23); BASOPHILS PERCENT AUTO 0 % (0-2); EOSINOPHILS ABSOLUTE AUTO 0.06 K/mm3 (0.00-0.68); EOSINOPHILS PERCENT AUTO 1 % (0-6); Hematocrit 35.3 % (37.0-53.0); Hemoglobin 11.3 g/dL (13.5-17.5); IMMATURE GRAN ABSOLUTE AUTO 0.08 K/mm3 (0.00-0.10); IMMATURE GRAN PERCENT AUTO 2 % (0-1); LYMPHOCYTES ABSOLUTE AUTO 0.93 K/mm3 (0.84-5.20); LYMPHOCYTES PERCENT AUTO 17 % (21-46); MONOCYTES ABSOLUTE AUTO 0.82 K/mm3 (0.16-1.47); MONOCYTES PERCENT AUTO 15 % (4-13); Mean Corpuscular HGB 27.4 pg (26.0-34.0); Mean Corpuscular Volume 86 fL (80-100); Mean Platelet Volume 9.3 fL (9.1-12.4); NEUTROPHILS ABSOLUTE AUTO 3.51 K/mm3 (1.96-9.15); NEUTROPHILS PERCENT AUTO 65 % (41-73); Platelet Count 157 K/mm3 (150-400); RDW Coefficient Variation 14.2 % (11.7-14.2); RDW Standard Deviation 44.3 fL (35.1-46.3); Red Blood Cell Count 4.13 M/mm3 (4.30-5.90); White Blood Cell Count 5.42 K/mm3 (4.00-11.30)
[2018-12-28 05:46] LABS: Alanine Aminotransfer (ALT/SGP 69 U/L (12-78); Albumin, Blood 2.1 g/dL (3.4-5.0); Albumin/Globulin Ratio 0.4 (0.8-1.8); Alk Phos 266 U/L (50-136); Anion Gap 7 mmol/L (6-16); Aspartate Aminotrans (AST/SGOT 50 U/L (12-37); Bilirubin, Total 0.9 mg/dL (0.1-1.0); Blood Urea Nitrogen 9 mg/dL (8-24); Bun/Creatinine Ratio 26.7 (12.0-20.0); CO2, Blood 31 mmol/L (21-32); Chloride, Blood 99 mmol/L (98-108); Creatinine, Blood 0.34 mg/dL (0.60-1.20); Globulin, Blood 4.8 g/dL (2.2-4.0); Glomerular Filtration Rate >60 (60-); Glucose, Blood 99 mg/dL (70-99); Potassium, Blood 4.1 mmol/L (3.5-5.5); Sodium, Blood 137 mmol/L (136-145); Total Protein, Blood 6.9 g/dL (6.4-8.2)
--- NOTE | 2018-12-28 19:02 | NUR ---
SHIFT SUMMARY MRI AND XRAYS COMPLETED TODAY. C/O PAIN ALL OVER UNRELEIVED BY CURRENT MEDS ORDERED. REQUESTING TO BE DISCHARGED TO FACILITY WHERE HE CAN BE PLACED BACK ON METHADONE. ATE SEVERAL SNACKS TODAY AND TAKING FLUIDS WELL. JD MUSA JUNIOR ART DIRECTOR WORKING ON PLACEMENT. INCREASED INCREASE. PAIN WITH EVEN VERY SLIGHT PASSIVE MOVEMENTS.
--- NOTE | 2018-12-29 05:16 | NUR ---
VSS, AFEBRILE, A/O, SLEPT WELL LAST NIGIT. FEW CALLS OR COMPLAINTS. PT IS STABLE AT THIS TIME.
[2018-12-29 05:50] LABS: BASOPHILS ABSOLUTE AUTO 0.03 K/mm3 (0.00-0.23); BASOPHILS PERCENT AUTO 1 % (0-2); EOSINOPHILS ABSOLUTE AUTO 0.08 K/mm3 (0.00-0.68); EOSINOPHILS PERCENT AUTO 1 % (0-6); Hematocrit 36.1 % (37.0-53.0); Hemoglobin 11.7 g/dL (13.5-17.5); IMMATURE GRAN ABSOLUTE AUTO 0.06 K/mm3 (0.00-0.10); IMMATURE GRAN PERCENT AUTO 1 % (0-1); LYMPHOCYTES ABSOLUTE AUTO 1.26 K/mm3 (0.84-5.20); LYMPHOCYTES PERCENT AUTO 20 % (21-46); MONOCYTES ABSOLUTE AUTO 0.67 K/mm3 (0.16-1.47); MONOCYTES PERCENT AUTO 11 % (4-13); Mean Corpuscular HGB 27.3 pg (26.0-34.0); Mean Corpuscular HGB Conc 32.4 g/dL (31.5-36.5); Mean Corpuscular Volume 84 fL (80-100); Mean Platelet Volume 8.9 fL (9.1-12.4); NEUTROPHILS ABSOLUTE AUTO 4.13 K/mm3 (1.96-9.15); NEUTROPHILS PERCENT AUTO 66 % (41-73); Platelet Count 155 K/mm3 (150-400); RDW Coefficient Variation 14.4 % (11.7-14.2); RDW Standard Deviation 44.2 fL (35.1-46.3); Red Blood Cell Count 4.28 M/mm3 (4.30-5.90); White Blood Cell Count 6.23 K/mm3 (4.00-11.30)
[2018-12-29] MEDS ORDERED: METCAR500 PO (16:38)
[2018-12-29] MEDS ORDERED: Prozac20 MG PO (16:38)
[2018-12-29] MEDS ORDERED: GABA300 PO (16:39)
[2018-12-29] MEDS ORDERED: ACET325 PO (16:39)
[2018-12-29] MEDS ORDERED: Bisac-Evac10 MG PR (16:40)
[2018-12-29] MEDS ORDERED: CALCIUM 500 +1 EAC3 PO (16:41)
[2018-12-29] MEDS ORDERED: Amoxicillin500 M1 PO (16:43)
[2018-12-29] MEDS ORDERED: DOCU100 PO (16:44)
[2018-12-29] MEDS ORDERED: LIDOCARE1 EACH TOP (16:45)
[2018-12-29] MEDS ORDERED: ONDA4ODT MM (16:46)
[2018-12-29] MEDS ORDERED: NICO21TP TOP (16:46)
[2018-12-29] MEDS ORDERED: OLAN5 PO (16:46)
[2018-12-29] MEDS ORDERED: SACC250C PO (16:47)
--- NOTE | 2018-12-29 18:33 | NUR ---
discharge PT CONTINUES TO STATE UNABLE TO BR WT OR AMBULATE R/T LEP CRAMPS & PAIN. HE CONTINUES TO REFUSE PHYTHER. CLINICAL PROVIDER TRAINER EXPLAIN TO PT & FAMILY THAT REHAB IS NOT AN OPTION FOR VARIOUS REASONS. DR SELBY EXPLAIN TO PT THAT ALL TEST ARE NEGATIVE, SEPSIS HAS RESOLVED & THAT HE MAY GO HOME TODAY WITH HOME HEALTH. INITIALLY FAMILY STATE INABILITY TO CARE FOR HIM @ HOME BUT RELUCTANTLY AGREE AFTER CONVERSATION WITH ELECTROPLATER HELPER. PT WAS INITIALLY EMOTIONAL HOWEVER HAS CALMED IS ACCEPTING D/C. DR SELBY PROVIDE ORDER FOR W/C. SCRIPTS FAXED TO [facility]. D/C INSTRUCT PROVIDED W EMPHASIS ON F/U W PCP. PWERGLIDE IV D/C INTACT. GURNEY TRANSPORTATION ARRANGED BY CLINICAL PROVIDER TRAINER FOR 1829. RIB TRIM SEPARATOR ASSIST HIM TO DRESS & GATHER BELONGINGS. PT IS PLEASANT & SMILING @ THIS TIME.
== END 2018-12-29 19:30 | disposition home or self-care (01) | DRG 872 ==
LOC: ER 08:59 → PCU 16:15 → ERHOLD 16:15 → MEDS 16:15 → PCU 20:45 → MEDS 12-25 14:28
PROVIDERS: Emergency Medicine; ADMIT Family Medicine
DX: A40.9 Streptococcal sepsis, unspecified (principal); E87.1 Hypo-osmolality and hyponatremia; F15.20 Other stimulant dependence, uncomplicated; F41.9 Anxiety disorder, unspecified; F43.10 Post-traumatic stress disorder, unspecified; Z87.891 Personal history of nicotine dependence; B19.20 Unspecified viral hepatitis C without hepatic coma; G25.81 Restless legs syndrome; Z94.5 Skin transplant status; R74.0 Nonspecific elevation of levels of transaminase and lactic acid dehydrogenase [LDH]; K74.60 Unspecified cirrhosis of liver; Z99.3 Dependence on wheelchair; F11.10 Opioid abuse, uncomplicated; M54.5 Low back pain; R39.198 Other difficulties with micturition; M25.552 Pain in left hip; M25.551 Pain in right hip
CPT/HCPCS: 36415; 51702; 71045; 71046; 72100; 72156; 72157; 72158; 73523; 80053; 80202; 81001; 83605; 83690; 85025; 85651; 86140; 87040; 87086; 87147; 90686; 93005; 93010; 93306; 96374-59; 96375-59; 97110; 97162; 97166; 97530; 99285-25; A9577; C1751; G0008; J0696; J1170; J1650; J1885; J2060; J2185; J2405; J2543; J3370; J7030; J7050; Q0163

== ENCOUNTER → 2019-01-31 | Outpatient (CLI) | payer OTHER ==
[~2019-01-31] MED LIST changes: +ACET325 PO; +Amoxicillin500 M1 PO; +BACL10; +Bisac-Evac10 MG PR; +CALCIUM 500 +1 EAC3 PO; +DOCU100 PO; +FLUO10; +LIDOCARE1 EACH TOP; +METCAR500 PO; +NICO21TP TOP; +OLAN5 PO; +ONDA4ODT MM; +Prozac20 MG PO; +SACC250C PO
[2019-01-31 10:40] LABS: BASOPHILS ABSOLUTE AUTO 0.02 K/mm3 (0.00-0.23); BASOPHILS PERCENT AUTO 1 % (0-2); EOSINOPHILS ABSOLUTE AUTO 0.08 K/mm3 (0.00-0.68); EOSINOPHILS PERCENT AUTO 2 % (0-6); Hematocrit 36.6 % (37.0-53.0); Hemoglobin 11.6 g/dL (13.5-17.5); IMMATURE GRAN ABSOLUTE AUTO 0.02 K/mm3 (0.00-0.10); IMMATURE GRAN PERCENT AUTO 1 % (0-1); LYMPHOCYTES ABSOLUTE AUTO 0.96 K/mm3 (0.84-5.20); LYMPHOCYTES PERCENT AUTO 24 % (21-46); MONOCYTES ABSOLUTE AUTO 0.31 K/mm3 (0.16-1.47); MONOCYTES PERCENT AUTO 8 % (4-13); Mean Corpuscular HGB 26.5 pg (26.0-34.0); Mean Corpuscular HGB Conc 31.7 g/dL (31.5-36.5); Mean Corpuscular Volume 84 fL (80-100); Mean Platelet Volume 9.2 fL (9.1-12.4); NEUTROPHILS ABSOLUTE AUTO 2.57 K/mm3 (1.96-9.15); NEUTROPHILS PERCENT AUTO 65 % (41-73); Platelet Count 108 K/mm3 (150-400); RDW Coefficient Variation 14.1 % (11.7-14.2); RDW Standard Deviation 42.5 fL (35.1-46.3); Red Blood Cell Count 4.37 M/mm3 (4.30-5.90); White Blood Cell Count 3.96 K/mm3 (4.00-11.30)
[2019-01-31 10:41] LABS: Bilirubin, Urine Neg (Neg); Blood, Urine Neg (Neg); Glucose Qualitative, Urine Neg (Neg); Ketones, Urine Neg (Neg); Leukocyte Esterase, Urine Neg (Neg); Nitrite, Urine Neg (Neg); Protein, Urine Neg (Neg); Specific Gravity, Urine 1.015 (1.003-1.022); Urobilinogen, Urine 1+ (Normal)
[2019-01-31 10:44] LABS: Appearance, Urine Clear (Clear); Color, Urine Yellow (P-Yellow)
[2019-01-31 11:06] LABS: Alanine Aminotransfer (ALT/SGP 23 U/L (12-78); Albumin, Blood 2.8 g/dL (3.4-5.0); Albumin/Globulin Ratio 0.6 (0.8-1.8); Alk Phos 203 U/L (50-136); Anion Gap 3 mmol/L (6-16); Aspartate Aminotrans (AST/SGOT 20 U/L (12-37); Bilirubin, Total 0.6 mg/dL (0.1-1.0); Blood Urea Nitrogen 6 mg/dL (8-24); Bun/Creatinine Ratio 16.2 (12.0-20.0); CO2, Blood 32 mmol/L (21-32); Calcium, Blood 8.2 mg/dL (8.5-10.1); Chloride, Blood 103 mmol/L (98-108); Creatinine, Blood 0.37 mg/dL (0.60-1.20); Globulin, Blood 4.8 g/dL (2.2-4.0); Glomerular Filtration Rate >60 (60-); Glucose, Blood 71 mg/dL (70-99); Potassium, Blood 3.7 mmol/L (3.5-5.5); Sodium, Blood 138 mmol/L (136-145); Total Protein, Blood 7.6 g/dL (6.4-8.2)
[2019-02-01 05:15] LABS: HBSAG SCREEN Negative (Negative); HEP B CORE AB, IGM Negative (Negative); HIV SCREEN 4TH GENERATION WRFX Non Reactive (Non Reactive)
[2019-02-01 23:09] LABS: CHLAMYDIA TRACHOMATIS, NAA Negative (Negative); NEISSERIA GONORRHOEAE, NAA Negative (Negative)
[2019-02-03 10:09] LABS: HEPATITIS C QUANTITATION HCV Not Detected IU/mL (.)
== END ==
LOC: LAB 09:45 → LAB SHORT 09:45 → LAB FUT 11-11 10:30
PROVIDERS: Nurse Practitioner Family
DX: R39.11 Hesitancy of micturition (principal); F19.10 Other psychoactive substance abuse, uncomplicated; I10 Essential (primary) hypertension; B19.20 Unspecified viral hepatitis C without hepatic coma; D50.9 Iron deficiency anemia, unspecified; E55.9 Vitamin D deficiency, unspecified; F41.1 Generalized anxiety disorder
CPT/HCPCS: 36415; 80053; 81003; 82306; 83036; 84443; 85025; 86317; 86592; 86705; 86708; 87340; 87389; 87491; 87522; 87591; 87902

== ENCOUNTER → 2022-03-25 | Outpatient (CLI) | payer OTHER | LOC: LAB 05:21 → LAB SHORT 05:21 | DX: D48.5 Neoplasm of uncertain behavior of skin (principal) | CPT/HCPCS: 88341; 88342 ==

== ENCOUNTER 2022-06-08 07:24 | Emergency (ER) | payer OTHER ==
[~2022-06-08] VITALS: Ht 182.9 cm; Wt 95.2 kg
[2022-06-08] MEDS ORDERED: METH40 (11:47)
== END 2022-06-08 11:40 | disposition home or self-care (01) ==
LOC: ER 07:24
DX: T84.020A Dislocation of internal right hip prosthesis, initial encounter (principal); F17.200 Nicotine dependence, unspecified, uncomplicated; Z88.8 Allergy status to other drugs, medicaments and biological substances; Z79.899 Other long term (current) drug therapy; Y83.8 Other surgical procedures as the cause of abnormal reaction of the patient, or of later complication, without mention of misadventure at the time of the procedure
CPT/HCPCS: 73502; J2250; J2704; J7030

== ENCOUNTER 2022-06-16 01:48 | Emergency (ER) | payer OTHER | END 2022-06-16 12:00 | disposition home or self-care (01) | LOC: ER 01:48 | DX: T84.020A Dislocation of internal right hip prosthesis, initial encounter (principal); F17.200 Nicotine dependence, unspecified, uncomplicated; X58.XXXA Exposure to other specified factors, initial encounter; Z88.8 Allergy status to other drugs, medicaments and biological substances; Z79.899 Other long term (current) drug therapy; Y83.8 Other surgical procedures as the cause of abnormal reaction of the patient, or of later complication, without mention of misadventure at the time of the procedure ==

== ENCOUNTER 2022-07-06 10:42 | Inpatient (IN) | payer OTHER ==
[~2022-07-06] VITALS: Ht 182.9 cm; Wt 90.7 kg
[~2022-07-06 10:42] MED LIST changes: +METH40; +PROM25; +Xifaxan200 MG
--- NOTE | 2022-07-06 15:33 | NUR ---
07/06/22 1533 Jay Rubin NO COUNTS OR PREP DUE TO CLOSED REDUCTION SX
--- NOTE | 2022-07-06 17:39 | NUR ---
PT ARRIVED TO UNIT FROM PACU AWAKE AND ALERT. PT VERY TALKATIVE, HARD TO GET PT TO FOCUS. PT VERY CONCERNED ABOUT DOG. DOES NOT WANT TO STAY THROUGH NIGHT. ADVISED PT PHYS THERAPY AND OT ORDERED FOR TOMORROW. PT STATES KNOWS HOW TO TRANSFER AND MOVE. NOTIFIED DR BULL PT DESIRES TO BE DISCHARGED. DR BULL INSTRUCTED PT TO KEEP KNEE IMMOBILIZER ON AND SLEEP WITH WEDGE PILLOW IN PLACE IF HOSPITALIST OKAY WITH DC'ING PT TONIGHT. HAVE CALL OUT TO DR GANT. PT'S LCA. HRR. NSR @ 89 PER KERIA VIERA. PPP. CALL LIGHT IN REACH.
--- NOTE | 2022-07-06 18:58 | NUR ---
PT LEAVING AMA NOTIFIED DR GANT PT WISHED TO BE DISCHARGED. DR GANT STATED PT WOULD HAVE TO LEAVE AMA. PT SIGNED AMA PAPERWORK. GETTING DRESSED. DC'D IV. NOTIFIED TELE PT WAS LEAVING AND REMOVED TELE BOX. NOTIFIED ORIENTAL RUG REPAIRER PT LEAVING AMA.
--- NOTE | 2022-07-06 19:33 | NUR ---
PT LEFT UNIT IN OWN WC W/POSSESSIONS IN HAND TO WAIT FOR TAXI AT PATIENT ENTRANCE.
== END 2022-07-06 19:07 | disposition home or self-care (01) | DRG 468 ==
LOC: ER 10:42 → MEDS 14:22 → SURS 17:12
PROVIDERS: Orthopaedic Surgery; ADMIT Internal Medicine
PROC: 0SW Lower Joints, Revision (ICD-10-PCS; principal; 2022-07-06 14:30)
DX: T84.020A Dislocation of internal right hip prosthesis, initial encounter (principal); M62.838 Other muscle spasm; F43.10 Post-traumatic stress disorder, unspecified; F41.9 Anxiety disorder, unspecified; F31.9 Bipolar disorder, unspecified; G89.29 Other chronic pain; M54.9 Dorsalgia, unspecified; G40.909 Epilepsy, unspecified, not intractable, without status epilepticus; E55.9 Vitamin D deficiency, unspecified; Z98.890 Other specified postprocedural states; Z88.8 Allergy status to other drugs, medicaments and biological substances; G25.81 Restless legs syndrome; Z79.899 Other long term (current) drug therapy; F17.200 Nicotine dependence, unspecified, uncomplicated; I10 Essential (primary) hypertension; K74.60 Unspecified cirrhosis of liver
CPT/HCPCS: 27265; 73501; 99152; 99284-25; J0330; J2250; J2704; J3010; J3360; J7030; J7120

== ENCOUNTER 2022-07-29 12:07 | Emergency (ER) | payer OTHER ==
[~2022-07-29] VITALS: Ht 182.9 cm; Wt 88.5 kg
== END 2022-07-29 18:09 | disposition home or self-care (01) ==
LOC: ER 12:07
DX: T84.020A Dislocation of internal right hip prosthesis, initial encounter (principal); F17.200 Nicotine dependence, unspecified, uncomplicated; Z88.8 Allergy status to other drugs, medicaments and biological substances; Z96.641 Presence of right artificial hip joint; X58.XXXA Exposure to other specified factors, initial encounter
CPT/HCPCS: 27266; 73501; 73502; 96374-59; 96375-59; 96376-59; 99284-25; A9270; J1170; J2405

== ENCOUNTER 2022-08-14 11:38 | Emergency (ER) | payer OTHER ==
[~2022-08-14] VITALS: Ht 182.9 cm; Wt 88.5 kg
== END 2022-08-14 16:15 | disposition home or self-care (01) ==
LOC: ER 11:38
DX: T84.020A Dislocation of internal right hip prosthesis, initial encounter (principal); F17.200 Nicotine dependence, unspecified, uncomplicated; Z88.8 Allergy status to other drugs, medicaments and biological substances; Z96.641 Presence of right artificial hip joint
CPT/HCPCS: 27265; 73501; 73502; 99152; 99284-25; A9270; J2704; J7030

== ENCOUNTER 2022-09-03 06:12 | Emergency (ER) | payer OTHER ==
[~2022-09-03] VITALS: Ht 182.9 cm; Wt 86.2 kg
== END 2022-09-03 09:58 | disposition home or self-care (01) ==
LOC: ER 06:12
DX: M24.451 Recurrent dislocation, right hip (principal); F17.210 Nicotine dependence, cigarettes, uncomplicated; Z88.8 Allergy status to other drugs, medicaments and biological substances
CPT/HCPCS: 73501; 73502; A9270; J2250; J2704; J7030

== ENCOUNTER 2022-12-02 17:09 | Emergency (ER) | payer OTHER ==
[~2022-12-02] VITALS: Ht 182.9 cm; Wt 83.5 kg
== END 2022-12-02 23:32 | disposition home or self-care (01) ==
LOC: ER 17:09
DX: T84.020A Dislocation of internal right hip prosthesis, initial encounter (principal); Y79.2 Prosthetic and other implants, materials and accessory orthopedic devices associated with adverse incidents; F17.210 Nicotine dependence, cigarettes, uncomplicated; Z88.8 Allergy status to other drugs, medicaments and biological substances; Z79.899 Other long term (current) drug therapy
CPT/HCPCS: 27266; 36415; 73501; 73502; 96374-59; 99284-25; A9270; J3010; J7030

== ENCOUNTER 2022-12-03 08:51 | Emergency (ER) | payer OTHER ==
[~2022-12-03] VITALS: Ht 182.9 cm; Wt 83.5 kg
== END 2022-12-03 14:57 | disposition home or self-care (01) ==
LOC: ER 08:51
DX: T84.020A Dislocation of internal right hip prosthesis, initial encounter (principal); Y79.2 Prosthetic and other implants, materials and accessory orthopedic devices associated with adverse incidents; F17.210 Nicotine dependence, cigarettes, uncomplicated; Z88.8 Allergy status to other drugs, medicaments and biological substances; Z79.899 Other long term (current) drug therapy
CPT/HCPCS: 27265; 73501; 73502; 99152; 99153; 99284-25; J2704; J7030

== ENCOUNTER 2023-01-11 15:30 | Emergency (ER) | payer OTHER ==
[~2023-01-11] VITALS: Ht 182.9 cm; Wt 79.4 kg
[2023-01-11] MEDS ORDERED: OMEP20ER PO (16:03)
[2023-01-11] MEDS ORDERED: XIFAXAN550 MG PO (16:04)
[2023-01-11] MEDS ORDERED: METPHE20 PO (16:20)
[2023-01-11] MEDS ORDERED: BACLOFEN10 M4 PO (16:20)
[2023-01-11] MEDS ORDERED: METH40 PO (16:22)
[2023-01-11] MEDS ORDERED: METPHE27ER PO (16:23)
== END 2023-01-11 21:12 ==
LOC: ER 15:30
DX: T84.021A Dislocation of internal left hip prosthesis, initial encounter (principal); F17.210 Nicotine dependence, cigarettes, uncomplicated; Y84.8 Other medical procedures as the cause of abnormal reaction of the patient, or of later complication, without mention of misadventure at the time of the procedure; Z88.8 Allergy status to other drugs, medicaments and biological substances; Z79.899 Other long term (current) drug therapy
CPT/HCPCS: 72170; 73501; A9270; J2704; J7030

== ENCOUNTER 2023-02-18 16:41 | Emergency (ER) | payer OTHER ==
[~2023-02-18] VITALS: Ht 182.9 cm; Wt 83.9 kg
[~2023-02-18 16:41] MED LIST changes: +BACLOFEN10 M4 PO; +METPHE20 PO; +METPHE27ER PO; +XIFAXAN550 MG PO
[2023-02-18 17:00] VITALS: BP 147/79
== END 2023-02-18 21:20 | disposition home or self-care (01) ==
LOC: ER 16:41
DX: T84.021A Dislocation of internal left hip prosthesis, initial encounter (principal); X58.XXXA Exposure to other specified factors, initial encounter; Z88.8 Allergy status to other drugs, medicaments and biological substances; Z79.899 Other long term (current) drug therapy; F43.10 Post-traumatic stress disorder, unspecified; F17.210 Nicotine dependence, cigarettes, uncomplicated
CPT/HCPCS: 27265; 73502; 96374-59; 99284-25; J2060; J2704; J7030

== ENCOUNTER 2023-03-24 08:08 | Emergency (ER) | payer OTHER ==
[~2023-03-24] VITALS: Ht 182.9 cm; Wt 86.2 kg
[2023-03-24 11:30] VITALS: BP 101/90
== END 2023-03-24 12:23 | disposition home or self-care (01) ==
LOC: ER 08:08
DX: T84.020A Dislocation of internal right hip prosthesis, initial encounter (principal); M24.452 Recurrent dislocation, left hip; B18.2 Chronic viral hepatitis C; F17.210 Nicotine dependence, cigarettes, uncomplicated; Z88.6 Allergy status to analgesic agent; Z88.8 Allergy status to other drugs, medicaments and biological substances; X50.1XXA Overexertion from prolonged static or awkward postures, initial encounter
CPT/HCPCS: 72170; J2704; J7030

== ENCOUNTER 2023-07-08 17:38 | Emergency (ER) | payer OTHER ==
[~2023-07-08] VITALS: Ht 182.9 cm; Wt 78.9 kg
[2023-07-08 22:00] VITALS: BP 110/74
== END 2023-07-08 22:28 | disposition home or self-care (01) ==
LOC: ER 17:38
DX: T84.021A Dislocation of internal left hip prosthesis, initial encounter (principal); K74.60 Unspecified cirrhosis of liver; B19.20 Unspecified viral hepatitis C without hepatic coma; K76.6 Portal hypertension; K31.89 Other diseases of stomach and duodenum; F43.10 Post-traumatic stress disorder, unspecified; F41.9 Anxiety disorder, unspecified; G25.81 Restless legs syndrome; F17.210 Nicotine dependence, cigarettes, uncomplicated; F11.20 Opioid dependence, uncomplicated; Z88.8 Allergy status to other drugs, medicaments and biological substances; Z79.899 Other long term (current) drug therapy; Z96.641 Presence of right artificial hip joint
CPT/HCPCS: 27266; 73501; 73502; 96374-59; 96375-59; 96376-59; 99152; 99285-25; J1885; J2270; J2704; J3010; J7030

== ENCOUNTER 2023-08-17 16:14 | Inpatient (IN) | payer OTHER ==
[~2023-08-17] VITALS: Ht 182.9 cm; Wt 76.6 kg
[2023-08-17] MEDS ORDERED: Phenergan25 M1 PO (21:07)
[2023-08-18] VITALS (21 sets, daily range): BP systolic 92–141; BP diastolic 48–96
[2023-08-18 05:26] LABS: BASOPHILS ABSOLUTE AUTO 0.01 K/mm3 (0.00-0.23); BASOPHILS PERCENT AUTO 1 % (0-2); EOSINOPHILS ABSOLUTE AUTO 0.06 K/mm3 (0.00-0.68); EOSINOPHILS PERCENT AUTO 3 % (0-6); Hematocrit 29.5 % (37.0-53.0); Hemoglobin 9.4 g/dL (13.5-17.5); IMMATURE GRAN PERCENT AUTO 0 % (0-1); LYMPHOCYTES ABSOLUTE AUTO 0.49 K/mm3 (0.84-5.20); LYMPHOCYTES PERCENT AUTO 28 % (21-46); MONOCYTES ABSOLUTE AUTO 0.11 K/mm3 (0.16-1.47); MONOCYTES PERCENT AUTO 6 % (4-13); Mean Corpuscular HGB Conc 31.9 g/dL (31.5-36.5); Mean Corpuscular Volume 82 fL (80-100); Mean Platelet Volume 9.7 fL (9.1-12.4); NEUTROPHILS ABSOLUTE AUTO 1.09 K/mm3 (1.96-9.15); NEUTROPHILS PERCENT AUTO 62 % (41-73); Platelet Count 89 K/mm3 (150-400); RDW Coefficient Variation 14.5 % (11.7-14.2); RDW Standard Deviation 42.5 fL (35.1-46.3); Red Blood Cell Count 3.61 M/mm3 (4.30-5.90); White Blood Cell Count 1.76 K/mm3 (4.00-11.30)
[2023-08-18 05:36] LABS: International Normalized Ratio 1.19; Prothrombin Time Results 12.4 Sec (9.7-11.5)
[2023-08-18 06:02] LABS: BASOPHILS PERCENT MAN 0 % (0-2); EOSINOPHILS PERCENT MAN 6 % (0-6); LYMPHOCYTES ABSOLUTE MAN 0.66 K/mm3 (0.84-5.20); LYMPHOCYTES PERCENT MAN 38 % (21-46); MONOCYTES ABSOLUTE MAN 0.14 K/mm3 (0.16-1.47); MONOCYTES PERCENT MAN 8 % (4-13); NEUTROPHILS ABSOLUTE MAN 0.84 K/mm3 (1.96-9.15); SEG NEUTROPHILS PERCENT MAN 48 % (41-73); TOTAL CELLS COUNTED 50
[2023-08-18 06:04] LABS: Albumin, Blood 3.2 g/dL (3.4-5.0); Albumin/Globulin Ratio 1.1 (0.8-1.8); Bilirubin, Total 0.4 mg/dL (0.1-1.0); Bun/Creatinine Ratio 17.6 (12.0-20.0); Calcium, Blood 7.8 mg/dL (8.5-10.1); Creatinine, Blood 0.57 mg/dL (0.60-1.20); Globulin, Blood 2.9 g/dL (2.2-4.0); Magnesium, Blood 2.3 mg/dL (1.6-2.4); Potassium, Blood 3.5 mmol/L (3.5-5.5); Total Protein, Blood 6.1 g/dL (6.4-8.2)
--- NOTE | 2023-08-18 06:18 | NUR ---
TRANSFER NOTE THIS RN RECEIVED REPORT FROM ED SANTIAGO IN THE ED VIA PHONE. PT TRANSFERRED TO PCU 4 AT 0605. PT TRANSFERRED FROM [facility] TO BED VIA SLIDE SHEET. PT A&O. SR ON MONITOR WITH HR 70'S. SBP 140'S. ON RA WITH SPO2 >94%. RR 12. DUNCAN. CURRENTLY PATIENT IS ATTEMPTING TO USE THE URINAL AND ASKED THIS RN TO STEP OUT OF ROOM FOR PRIVACY. THIS RN WILL CONTINUE ADMISSION UNTIL THIS RN GIVES REPORT TO JULIANE MONTANA RN.
--- NOTE | 2023-08-18 12:39 | NUR ---
PRE-OP NOTE PT A&OX4, BREATHING RA, APPROPRIATE AND ALERT, NO COMPLAINTS. Patient confirms NPO status and agrees with scheduled surgery. Pre-Op teaching done. Pt verbalizes understanding.DENTURES TO PACU.
--- NOTE | 2023-08-18 16:22 | NUR ---
CALLED [facility] TO VERIFY THE PT'S METHADONE DOSE. THEY STATED THEY WILL CALL THE UNIT BACK.
--- NOTE | 2023-08-18 16:58 | NUR ---
SHIFT SUMMARY PT WAS NPO ALL MORNING FOR AN ORTHO CONSULT. THEY TRIED TO REDUCE HIS HIP UNDER GERNAL ANESTHESIA AND WERE UNSUCCESSFUL. HE WILL BE COBRA TRANSFERED TO [facility]. HE HAS AN ACCEPTING PHYSICIAN BUT WE DO NOT HAVE A ROOM. NOLBERTO BRENNAN RN CALLED TO GET AN UPDATE AROUND 1700 AND THEY STATED THAT IT WILL LIKELY BE A FEW DAYS. HE HAS BEEN SB 36-50'S ON TELE BP SOFT . HE HAS BEEN DROWSY. HE REPORTABLY TAKE 120MG OF METHADONE DAILY AND HE GETS HIS MEDICATION FROM THE [facility]. I CALLED FOR VERIFICATION AND THEY SAID THEY WILL CALL BACK. I HELD TODAY'S DOSE DUE TO BRADYCARDIA, HYPOTENSION, AND DROWSINESS. THE PT DID COMAPLINE OF SOME BACK PAIN POST PROCEDURE BUT HAS BEEN ABLE TO SLEEP. SP02 >93% ON RA.
[2023-08-18 23:51] LABS: U Amphetamine Screen Not Detected; U Barbituate Screen DETECTED; U Benzodiazapine Screen Not Detected; U Buprenorphine Screen Not Detected; U Cannabinoids Screen Not Detected; U Cocaine Screen Not Detected; U Methadone Screen DETECTED; U Methamphetamine Screen DETECTED; U Opiates Screen Not Detected; U Oxycodone Screen Not Detected; U Phencyclidine Screen Not Detected; U Propoxyphene Screen Not Detected
[2023-08-19] VITALS: BP 96/57
[2023-08-19 04:36] VITALS: BP 97/55
--- NOTE | 2023-08-19 06:50 | NUR ---
SHIFT SUMMARY PATIENT ALERT AND ORIENTED X4. HAD NO COMPLAINTS OF PAIN OR SHORTNESS OF BREATH. BEDREST AT THIS TIME DUE TO DISLOCATED HIP. SPO2 HIGH 90'S ON ROOM AIR. PATIENT HYPOTENSIVE IN THE 90'S, MAP ABOVE 65. NO ACUTE ISSUES NOTED OVERNIGHT. WILL CONTINUE TO MONITOR. CALL LIGHT WITHIN REACH.
[2023-08-19 08:58] VITALS: BP 102/62
--- NOTE | 2023-08-19 09:31 | NUR ---
AM NOTE PT ALERT AND ORIENTED X 4, HE WAS ABLE TO TRANSFER TO WHEELCHAIR TO USE TOILET FOR BM. VSS, HR NOTED TO BE IN 50'S BUT PT STATED THAT IS NORMAL FOR HIM. HE REPORTED 7/10 PAIN IN L HIP AND LOW BACK, PLEASE SEE EMAR FOR PAIN MANAGEMENT. CALL LIGHT W/IN REACH.
[2023-08-19 13:49] VITALS: BP 135/84
[2023-08-19 15:33] VITALS: BP 123/77
--- NOTE | 2023-08-19 16:15 | NUR ---
Received pt from PCU 4 awake and alert x3. Denies pain. VSS. Oriented to room and call light. Awaiting [facility] transfer for left hip dislocation intervention.
[2023-08-19 19:58] VITALS: BP 121/71
[2023-08-20 02:31] VITALS: BP 128/88
--- NOTE | 2023-08-20 05:24 | NUR ---
END OF SHIFT SUMMARY PT A&O x4, VSS, AFEBRILE. PT PLEASANT, TALKATIVE AND COOPERATIVE WITH CARE PROVIDED. PT ABLE TO MAKE NEEDS KNOWN. PT NON WEIGHT BEARING TO L LEG, PT ABLE TO AMBULATE/HOBBLE ON ONE LEG WITH 1P SBA USING FWW. PT REQUESTED A COUPLE PRN's TO HELP WITH ANXIETY AND NAUSEA. PRN PHENERGAN GIVEN AND EFFECTIVE. PAIN MANAGED WITH PRN NORCO x1 ON NOC SHIFT. PT WAS UP ALL NIGHT, WATCHING TV, PLAYING ON TABLET, BUT APPEARED TO BE COMFORTABLE RESTING IN BED. CALL LIGHT WITHIN REACH, WCTM.
[2023-08-20 07:15] VITALS: BP 114/82
--- NOTE | 2023-08-20 09:15 | NUR ---
VAPE MATERIALS FOUND IN BED WITH PT. VAPE SECURED IN PT MED DRAWER. PT EDUCATED ON FIRE/IGNITION RISK AND POLICY. PT AGGITATED AND UPSET. 1:1 SITTER INITIATED. NURSING SUSTAINABILITY MANAGER NOTIFIED AND DR BERRY. PT CONSIDERING LEAVING AMA
--- NOTE | 2023-08-20 11:46 | NUR ---
Pt not responding to loud phone ring or verbal response. Pt responding to sternal rub. Explained need for making sure he is ok after all am meds. Pt appears drowsy. 1:1 sitter for high ingnition safety risk at bedside. Will continue to monitor.
[2023-08-20 17:15] VITALS: BP 117/91
--- NOTE | 2023-08-20 17:27 | NUR ---
SHIFT SUMMARY: Pt awake and alert this afternoon, hyperverbal with staff. 1:1 high risk ignition mine safety director at bedside. Pain and safety maintained. NWB LLE. Will continue to monitor.
[2023-08-20 19:17] VITALS: BP 135/88
--- NOTE | 2023-08-21 02:10 | NUR ---
NURSE FROM [facility] CALLED AND WANTED UPDATES, NO BED AVAILABLE
[2023-08-21 03:41] VITALS: BP 116/71
--- NOTE | 2023-08-21 05:16 | NUR ---
SUMMARY PT RESTING QUIETLY IN BED, 1:[address] FOR HIGH IGNITION RISK, AT THE START OF THE SHIFT PT SCREAMING AND YELLING AT THE PRIOR RN DUE TO HIS DISLIKE OF HAVING A 1:1 SITTER AND DISAGREEING WITH THE REASON WHY, PT MEDICATED PER EMAR AND SETTLED DOWN OVER THE NIGHT, PT ABLE TO MOVE SELF IN BED AND IN THE ROOM WITH MIN ASSIST, PT HAD MANY MANY SNACKS THROUGHOUT THE NIGHT, VERY TALKATIVE AT TIMES, VSS, WILL CONT TO MONITOR
[2023-08-21 07:28] VITALS: BP 97/55
--- NOTE | 2023-08-21 12:16 | NUR ---
1"1 AT BEDSIDE FOR FIRE WATCH, PATIENT CALM AND COOPERATIVE THIS AM
[2023-08-21 16:55] VITALS: BP 131/74
--- NOTE | 2023-08-21 18:20 | NUR ---
NO ACUTE CHANGES, WAITING FOR POSSIBLE PLACEMENT TO START ON WEDNESDAY, PATIENT FROM [place], PATIENT STATES HIS MOM IN [place] CAN COME AND PICK HIM UP, ALERT AND OREINTED, FORGETFUL AT TIMES, PRN CIWA 3, CALL LIGHT WITH IN REACH
[2023-08-21 19:39] VITALS: BP 109/68
--- NOTE | 2023-08-22 04:34 | NUR ---
SHIFT SUMMARY A/OX4. ROOM AIR. FIREWATCH LICENSED MARRIAGE AND FAMILY THERAPIST IN ROOM, PATIENT UNHAPPY ABOUT THIS. DISLOCATED LEFT HIP. TRANFERS TO WHEELCHAIR. IS NONWEIGHT BEARING TO LEFT LEG. PRN NORCO 10/325 GIVEN X2 SO FAR. PRN ZOFRAN GIVEN X1. PATIENT STATES HE IS ANXIOUS AND TENSE. IS COOPERATIVE BUT CAN BE IRRITABLE. AWAITING BED AT [facility], UPDATED [facility] ON PATIENT BUT NO BED IS AVAILABLE YET. NO IV ACCESS, PATIENT REFUSED TO BE RESTUCK. NO IV MEDICATIONS TO BE ADMINISTERED.
[2023-08-22 07:42] VITALS: BP 100/79
[2023-08-22 15:04] VITALS: BP 102/54
--- NOTE | 2023-08-22 17:15 | NUR ---
SHIFT SUMMARY PT AxOx4. COOPERATIVE WITH CARE THIS SHIFT. PT REPORTS DISCOMFORT FROM CHRONIC PAIN THIS SHIFT WITH REPORTED RELIEF AFTER BEING MEDICATED PER EMAR. PT EXPRESSED THAT HE FEELS LIKE HIS PAIN IS RELATED TO ANXIETY AND REQUESTED THE DR PRESCRIBE ADD ANXIETY MEDS TO HIS REGIMINE. PT IS WAITING FOR A BED TO TRANSFER TO [facility] FOR AN ORTHO REFERRAL. PER [facility], THIS MAY TAKE ANOTHER WEEK, BUT STAFF ENCOURAGED TO CALL DAILY TO CHECK STATUS. PT HAS 1:1 SITTER FOR HIGH FIRE IGNITION RISK/SAFETY PRECAUTION. PT IS NON WEIGHT BEARING TO LLE, BUT IS ABLE TO GET HIMSELF TO BATHROOM WITH ASSISTANCE FROM FWW/FURNITURE. PT IS CURRENTLY SITTING UP IN BED, CHATTING WITH SITTER. DENIES ANY NEEDS AT THIS TIME. CALL LIGHT IN REACH.
[2023-08-22 21:19] VITALS: BP 125/74
--- NOTE | 2023-08-23 01:42 | NUR ---
BRICK BURNER HEAD PROVIDER PAGED DUE TO PATIENT HAVING INCREASED ANXIETY. PATIENT REPORTED 0.5 MG OF ATIVAN HAD BEEN GIVEN X1 ON 08/21, HAD HELPED BUT THIS WAS GIVEN FOR INCREASED AGITATION. PROVIDER STATED HE WOULD LOOK OVER CHART NO ORDERS GIVEN AT THIS TIME.
[2023-08-23 02:22] VITALS: BP 102/67
--- NOTE | 2023-08-23 04:49 | NUR ---
SHIFT SUMMARY A/OX4 ROOM AIR. COOPERATIVE. COMPLAINTS OF CHRONIC PAIN TO LEFT HIP, INCREASED ANXIETY. PATIENT USING FURNITURE TO STAND AND DANGLE DISLOCATED LEFT HIP WHILE BALANCING ON RIGHT FOR SOME PRESSURE/TIGHTNESS RELEIF. LICENSED LOAN OFFICER PROVIDER NOTIFIED OF INCREASED ANXIETY R/T PAIN. ONE TIME ORDER OF 0.25 MG KLONOPIN GIVEN. PATIENT GOT INTO BED AFTERWARD TO TRY AND RELAX HE HAS NOT SLEPT ALL NIGHT. PATIENT ABLE TO MAKE NEEDS KNOWN. CALL LIGHT IN REACH. BED LOCKED IN LOW POSITION. PRN NORCO GIVEN X1 AT BEGINNING OF SHIFT.
[2023-08-23 07:57] VITALS: BP 84/68
[2023-08-23 09:40] LABS: Hematocrit 33.8 % (37.0-53.0); Hemoglobin 10.8 g/dL (13.5-17.5); Mean Corpuscular Volume 81 fL (80-100); Mean Platelet Volume 10.2 fL (9.1-12.4); Platelet Count 86 K/mm3 (150-400); RDW Coefficient Variation 14.1 % (11.7-14.2); RDW Standard Deviation 41.5 fL (35.1-46.3); Red Blood Cell Count 4.16 M/mm3 (4.30-5.90); White Blood Cell Count 1.89 K/mm3 (4.00-11.30)
[2023-08-23 10:02] LABS: Bun/Creatinine Ratio 36.3 (12.0-20.0); Calcium, Blood 8.4 mg/dL (8.5-10.1); Creatinine, Blood 0.55 mg/dL (0.60-1.20); Potassium, Blood 3.7 mmol/L (3.5-5.5)
[2023-08-23 11:01] LABS: BASOPHILS PERCENT MAN 0 % (0-2); EOSINOPHILS ABSOLUTE MAN 0.03 K/mm3 (0.00-0.68); EOSINOPHILS PERCENT MAN 2 % (0-6); LYMPHOCYTES ABSOLUTE MAN 0.79 K/mm3 (0.84-5.20); LYMPHOCYTES PERCENT MAN 42 % (21-46); MONOCYTES ABSOLUTE MAN 0.03 K/mm3 (0.16-1.47); MONOCYTES PERCENT MAN 2 % (4-13); NEUTROPHILS ABSOLUTE MAN 1.02 K/mm3 (1.96-9.15); SEG NEUTROPHILS PERCENT MAN 54 % (41-73); TOTAL CELLS COUNTED 50
--- NOTE | 2023-08-23 15:19 | NUR ---
NOTE: THIS NURSE CALLED [facility] TO CHECK ON THE STATUS OF A BED, THE [facility] NURSE STATED HE IS ON THE LIST BUT THERE ARE NO BEDS AVAILABLE AT THIS TIME.
[2023-08-23 16:16] VITALS: BP 122/70
--- NOTE | 2023-08-23 17:03 | NUR ---
SHIFT SUMMARY PT AOX4, FWW TO THE BATHROOM. SITTER IN PLACE, PT TALKING ALL DAY WITH THE SITTER. PT REQUESTED A PT ADVOCATE, STATED HE REQUESTED ONE THIS PAST WEEKEND. THIS NURSE CALLED AND LEFT A MESSAGE. C/O PAIN AND MEDICATED PER THE EMAR. RECLINER PLACED IN THE ROOM AFTER PT STATED HE TOLERATED SITTING BETTER IN A RECLINER. PT IS TALKATIVE AND DOES NOT STOP OFTEN. HE IS EAGER TO GET TO [facility] FOR A BED, SEE OTHER NOTE ABOUT THE STATUS OF THAT. CALL LIGHT WITHIN REACH, BED IN THE LOWEST POSITION. WILL REPORT TO ONCOMING NURSE.
[2023-08-23 20:35] VITALS: BP 109/65
--- NOTE | 2023-08-24 03:54 | NUR ---
SHIFT SUMMARY A/OX4. ROOM AIR. NO IV, ORDER IN CHART FOR NO NEED. AWAITING BED AT [facility]. FIREWATCH POSTAL SORTING OFFICER PRESENT, PATIENT UPSET WITH THIS PROTOCOL. VAPES LOCKED IN DRAWER. REPORTS ANXIETY THAT INCREASES TENSION CUASING INCREASED PAIN TO LEFT HIP. MEDICATED PRN NORCO X1 THIS SHIFT SO FAR. ABLE TO TRANSFER WITH FWW, NONWEIGHT BEARING TO LEFT LEG. PT SHOWERED TONIGHT. UNREMARKABLE SHIFT. ABLE TO MAKE NEEDS KNOWN. CALL LIGHT IN REACH.
[2023-08-24 07:36] VITALS: BP 109/94
[2023-08-24 15:20] VITALS: BP 102/58
--- NOTE | 2023-08-24 18:26 | NUR ---
SHIFT SUMMARY PT AOX4, INDEPENDENT IN THE ROOM. TALKATIVE. C/O PAIN AND MEDICATED PER THE EMAR. MEDICATED FOR NAUSEA AT THE START OF THE SHIFT. NO OTHER COMPLAINTS. HE REALLY WANTS TO SEE HIS DOG, THIS NURSE NOTIFIED HIM THAT HE CAN VISIT. HE SEEMED PLEASED WITH THAT. STILL AWAITING A BED AT [facility]. CALL LIGHT WITHIN REACH, BED IN THE LOWEST POSITION. WILL REPORT TO ONCOMING NURSE.
[2023-08-24 19:48] VITALS: BP 118/71
[2023-08-25 03:52] VITALS: BP 106/74
[2023-08-25 07:21] VITALS: BP 108/63
[2023-08-25 17:34] VITALS: BP 99/81
--- NOTE | 2023-08-25 17:48 | NUR ---
NOTE PT SUKHJINDER, COOPERATIVE. HE CALLED HIOS ORTHOPEDIC SURGEON FROM [facility] AND TALKED WITH HIS NURSE. HE WANTS TO LEAVE TO GO HOME AND TAKE CARE OF HIS DOG WHO HAS A SEIZURE DISORDER. HE TALKS CONSTANTLY. JEWELRY FINISHER. HE IS UP TOE TOUCH WEIGHT BEARING TO LEFT LE. MEDCIATED FOR PAIN WITH METHADONE AND NORCO. THE METHADONE CLIN[facility] IN [place] CALLED TODAY. CONFIRMED HIS DOSE IS 120 MG DAILY. WHILE TALKING WITH PT HE MENTIONED THAT HE HAD A DISTINUIC REACTION TO HIS FIRST DOSE OF ZOFRAN IN [facility]. HE HAD TO CHEW BENADRYL. ADDED THE ALLERGY TO HIS ALLERGY LIST WITH HIS CONSENT. EATING SOME. CONTINUE POC.
[2023-08-25 19:17] VITALS: BP 121/87
--- NOTE | 2023-08-26 00:21 | NUR ---
08/25/232025 PT SITTING UP ON BED, REPORTS PAIN IN L HIP, LOWER BACK AND HEAD. GAVE PAIN MED, WILL EVAL FOR EFFECT. PT REPORTS SLIGHT NAUSEA, IT IS NOT TIME FOR THE NAUSEA MED YET, PT FEELS HE IS OK FOR NOW. WILL CONTINUE TO MONITOR. PT HAS BRUISES ON UPPER ARMS AND SCABS ON LE'S. NO OTHER APPARENT SIGNS OF DISTRESS. CALL LIGHT IS IN REACH.
--- NOTE | 2023-08-26 00:25 | NUR ---
08/25/23 2323 PT EXPRESSING ANXIETY R/T HIS DOG'S CARE AT HOME BY HIS MOTHER AND SOME OF HIS OTHER RESPONSIBILITIES OUTSIDE OF THE HOSPITAL. HE IS EXPRESSING WISHES TO LEAVE AMA TO TAKE CARE OF THESE THINGS AND GO TO [facility] FROM HIS HOME INSTEAD OF FROM THIS HOSPITAL. I EXPLAINED TO HIM THAT HE WOULD LOSE HIS PLACE ON THE HOSPITAL TO HOSPITAL TRANSFER LIST, THAT IT WOULD NOT PREVENT HIM FROM BEING ADMITTED TO [facility] A DIFFERENT WAY, BUT IT WOULD NOT BE A HOSPITAL TO HOSPITAL TRANSFER. HE REPORTS HE HAS BEEN COMMUNICATING WITH THEM REGARDING POSSIBLY BEING ADMITTED FROM HIS HOME, I AM UNSURE OF WHAT THERE PLAN IS REGARDING THIS OR IF THEY HAVE ONE, BUT THE PT IS AWARE HE WILL LOSE HIS PLACE ON THE COBRA (HOSPITAL TO HOSPITAL) WAITING LIST. PT WAS VERY UPSET THAT WE ARE UNABLE TO PUSH HIM OUT IN A WHEELCHAIR WE HAVE NO PT OPERATED WHEELCHAIRS, ONLY ONES THAT STAFF CAN PUSH. I DID PLACE THE WHEELCHAIR THAT WE DO HAVE IN HIS ROOM BUT TOLD HIM THAT LEGALLY WE COULD NOT ASSIST HIM TO LEAVE AMA BUT HE WAS WELCOME TO USE THE WHEELCHAIR IN SOME WAY THAT HE DECIDED TO TRANSFER HIMSELF OUT OF THE HOSPITAL. PT WAS VERY TEARFUL REGARDING STAFF BEING UNABLE TO ASSIST HIM TO LEAVE. 08/25/23 1575 PT HAS NOW LEFT THE HOSPITAL AMA AFTER SIGNING THE AMA FORM.
== END 2023-08-25 23:45 | disposition left against medical advice (07) | DRG 560 ==
LOC: ER 16:14 → PCU 16:15 → MEDS 08-19 15:08 → PCU 08-19 15:08 → MEDS 08-19 16:03
PROVIDERS: Internal Medicine; Orthopaedic Surgery; ADMIT Student in an Organized Health Care Education/Training Program
PROC: 0SJBXZZ Inspection of Left Hip Joint, External Approach (ICD-10-PCS; principal; 2023-08-18 13:00)
DX: T84.021A Dislocation of internal left hip prosthesis, initial encounter (principal); D61.818 Other pancytopenia; F11.20 Opioid dependence, uncomplicated; K76.6 Portal hypertension; K74.60 Unspecified cirrhosis of liver; B18.2 Chronic viral hepatitis C; K31.89 Other diseases of stomach and duodenum; F41.9 Anxiety disorder, unspecified; F43.10 Post-traumatic stress disorder, unspecified; G25.81 Restless legs syndrome; F17.210 Nicotine dependence, cigarettes, uncomplicated; Z96.641 Presence of right artificial hip joint; F99 Mental disorder, not otherwise specified; Z99.3 Dependence on wheelchair; Z53.20 Procedure and treatment not carried out because of patient's decision for unspecified reasons; Z28.21 Immunization not carried out because of patient refusal
CPT/HCPCS: 27265; 36415; 73502; 80048; 80053; 82140; 82947; 83735; 85025; 85610; 93005; 93010; 99152; 99153; 99284-25; A9270; G0378; J0330; J2250; J2704; J3010; J7030; J7120

== ENCOUNTER 2024-02-25 10:06 | Emergency (ER) | payer OTHER ==
[~2024-02-25] VITALS: Ht 182.9 cm; Wt 79.4 kg
[~2024-02-25 10:06] MED LIST changes: +Phenergan25 M1 PO
[2024-02-25 10:07] VITALS: BP 137/97
[2024-02-25] MEDS ORDERED: Methadone HCL 10 MG TAB PO ONE (10:15)
== END 2024-02-25 10:59 | disposition home or self-care (01) ==
LOC: ER 10:06
DX: Z76.0 Encounter for issue of repeat prescription (principal); F43.10 Post-traumatic stress disorder, unspecified
CPT/HCPCS: 99283; A9270

== ENCOUNTER 2024-03-15 11:14 | Emergency (ER) | payer OTHER ==
[~2024-03-15] VITALS: Ht 182.9 cm; Wt 74.8 kg
[2024-03-15 11:28] VITALS: BP 142/66
[2024-03-15] MEDS ORDERED: Methadone HCL 10 MG TAB PO ONE (11:30)
== END 2024-03-15 12:10 | disposition home or self-care (01) ==
LOC: ER 11:14
DX: Z76.0 Encounter for issue of repeat prescription (principal); F43.10 Post-traumatic stress disorder, unspecified; Z87.891 Personal history of nicotine dependence; Z88.8 Allergy status to other drugs, medicaments and biological substances; Z79.899 Other long term (current) drug therapy
CPT/HCPCS: 99281; A9270

== ENCOUNTER 2024-04-10 22:29 | Emergency (ER) | payer OTHER ==
[~2024-04-10] VITALS: Ht 182.9 cm; Wt 72.6 kg
[2024-04-10] MEDS ORDERED: ZOLP5 PO (22:40)
[2024-04-10] MEDS ORDERED: Methadone HCL 10 MG TAB PO ONE (23:25)
[2024-04-10 23:36] VITALS: BP 114/85
== END 2024-04-10 23:37 | disposition home or self-care (01) ==
LOC: ER 22:29
DX: Z76.89 Persons encountering health services in other specified circumstances (principal); F11.20 Opioid dependence, uncomplicated; F17.210 Nicotine dependence, cigarettes, uncomplicated; Z88.8 Allergy status to other drugs, medicaments and biological substances; Z79.899 Other long term (current) drug therapy
CPT/HCPCS: 99281; A9270

== ENCOUNTER 2024-04-21 10:47 | Emergency (ER) | payer OTHER ==
[~2024-04-21] VITALS: Ht 182.9 cm; Wt 77.1 kg
[~2024-04-21 10:47] MED LIST changes: +ZOLP5 PO
[2024-04-21 11:28] VITALS: BP 116/73
[2024-04-21] MEDS ORDERED: Methadone HCL 10 MG TAB PO ONE (11:50)
== END 2024-04-21 12:12 | disposition home or self-care (01) ==
LOC: ER 10:47
DX: F11.90 Opioid use, unspecified, uncomplicated (principal); Z76.0 Encounter for issue of repeat prescription; F17.210 Nicotine dependence, cigarettes, uncomplicated; F43.10 Post-traumatic stress disorder, unspecified; Z79.899 Other long term (current) drug therapy; Z88.8 Allergy status to other drugs, medicaments and biological substances
CPT/HCPCS: 99281; A9270

== ENCOUNTER 2024-04-22 20:29 | Emergency (ER) | payer OTHER ==
[~2024-04-22] VITALS: Ht 172.7 cm; Wt 59.0 kg
[2024-04-22 20:48] VITALS: BP 133/85
[2024-04-22] MEDS ORDERED: Methadone HCL 10 MG TAB PO ONE (21:05)
== END 2024-04-22 21:23 | disposition home or self-care (01) ==
LOC: ER 20:29
DX: Z76.89 Persons encountering health services in other specified circumstances (principal); Z87.891 Personal history of nicotine dependence
CPT/HCPCS: 99281; A9270

== ENCOUNTER 2024-06-22 00:08 | Emergency (ER) | payer OTHER ==
[~2024-06-22] VITALS: Ht 182.9 cm; Wt 61.2 kg
[2024-06-22 02:14] LABS: Albumin, Blood 2.8 g/dL (3.4-5.0); Albumin/Globulin Ratio 0.5 (0.8-1.8); Bilirubin, Total 0.7 mg/dL (0.1-1.0); Bun/Creatinine Ratio 32.5 (12.0-20.0); Calcium, Blood 8.2 mg/dL (8.5-10.1); Creatinine, Blood 0.49 mg/dL (0.60-1.20); Globulin, Blood 5.2 g/dL (2.2-4.0); Potassium, Blood 3.8 mmol/L (3.5-5.5)
[2024-06-22] MEDS ORDERED: RX Prepack 2 Sprays Naloxone HCL 4 MG/SPRAY UD ONE (03:45)
[2024-06-22 04:00] VITALS: BP 103/80
== END 2024-06-22 05:19 | disposition home or self-care (01) ==
LOC: ER 00:08
PROVIDERS: Emergency Medicine
DX: T40.411A Poisoning by fentanyl or fentanyl analogs, accidental (unintentional), initial encounter (principal); F17.210 Nicotine dependence, cigarettes, uncomplicated; F43.10 Post-traumatic stress disorder, unspecified; Z79.899 Other long term (current) drug therapy; Z88.8 Allergy status to other drugs, medicaments and biological substances
CPT/HCPCS: 80053; 84484; 99284

== ENCOUNTER 2024-06-26 15:58 | Emergency (ER) | payer OTHER ==
[~2024-06-26] VITALS: Ht 182.9 cm; Wt 59.0 kg
[2024-06-26] MEDS ORDERED: Propofol 10mg/ml 20 ml Vial (Procedural) IV SCH ×2 (21:15→22:40)
[2024-06-26] MEDS ORDERED: LORazepam 2 MG/ML 1ML Injection IV PRN (21:15)
[2024-06-26] MEDS ORDERED: Ketamine HCl 100 MG / ML 5ML Vial IV ONE ×2 (21:15→22:20)
[2024-06-26] MEDS ORDERED: Midazolam HCl 1MG / ML 2ML Vial IV ONE (22:20)
[2024-06-26] MEDS ORDERED: Ketamine HCl 100 MG / ML 5ML Vial IM ONE (22:40)
[2024-06-26] MEDS ORDERED: LORazepam 2 MG/ML 1ML Injection IV ONE (22:40)
[2024-06-26 23:42] VITALS: BP 138/74
== END 2024-06-27 00:20 | disposition home or self-care (01) ==
LOC: ER 15:58
DX: T84.020A Dislocation of internal right hip prosthesis, initial encounter (principal); T84.021A Dislocation of internal left hip prosthesis, initial encounter; K59.00 Constipation, unspecified; W06.XXXA Fall from bed, initial encounter; F17.210 Nicotine dependence, cigarettes, uncomplicated; Y79.2 Prosthetic and other implants, materials and accessory orthopedic devices associated with adverse incidents; Z79.899 Other long term (current) drug therapy; Z88.8 Allergy status to other drugs, medicaments and biological substances
CPT/HCPCS: 27266; 72170; 96374; 99152; 99153; 99284-25; J2060; J2250; J2704

== ENCOUNTER 2025-05-05 10:58 | Emergency (ER) | payer OTHER ==
[~2025-05-05] VITALS: Ht 182.9 cm; Wt 59.0 kg
[2025-05-05 11:14] VITALS: BP 115/67
[2025-05-05 11:25] LABS: BASOPHILS ABSOLUTE AUTO 0.02 K/mm3 (0.00-0.23); BASOPHILS PERCENT AUTO 1 % (0-2); EOSINOPHILS ABSOLUTE AUTO 0.06 K/mm3 (0.00-0.68); EOSINOPHILS PERCENT AUTO 2 % (0-6); Hematocrit 29.6 % (37.0-53.0); Hemoglobin 8.9 g/dL (13.5-17.5); IMMATURE GRAN ABSOLUTE AUTO 0.00 K/mm3 (0.00-0.10); IMMATURE GRAN PERCENT AUTO 0 % (0-1); LYMPHOCYTES ABSOLUTE AUTO 0.75 K/mm3 (0.84-5.20); LYMPHOCYTES PERCENT AUTO 22 % (21-46); MONOCYTES ABSOLUTE AUTO 0.31 K/mm3 (0.16-1.47); MONOCYTES PERCENT AUTO 9 % (4-13); Mean Corpuscular HGB Conc 30.1 g/dL (31.5-36.5); Mean Corpuscular Volume 75 fL (80-100); NEUTROPHILS ABSOLUTE AUTO 2.21 K/mm3 (1.96-9.15); NEUTROPHILS PERCENT AUTO 66 % (41-73); NRBC ABSOLUTE 0.00 K/mm3 (0.00-0.02); NRBC Auto 0.0 /100 WBC (0.0-0.2); Platelet Count 140 K/mm3 (150-400); RDW Coefficient Variation 14.7 % (11.7-14.2); RDW Standard Deviation 39.8 fL (35.1-46.3)
[2025-05-05 11:44] LABS: Alanine Aminotransfer (ALT/SGP 52.0 U/L (12-78); Albumin, Blood 2.9 g/dL (3.4-5.0); Albumin/Globulin Ratio 0.5 (0.8-1.8); Anion Gap 5.0 mmol/L (3-11); Aspartate Aminotrans (AST/SGOT 47.0 U/L (12-37); Bilirubin, Total 0.7 mg/dL (0.1-1.0); Blood Urea Nitrogen 14.0 mg/dL (8-24); CO2, Blood 31.0 mmol/L (21-32); Calcium, Blood 8.1 mg/dL (8.5-10.1); Chloride, Blood 101.0 mmol/L (98-108); Creatinine, Blood 0.4 mg/dL (0.60-1.20); Globulin, Blood 5.3 g/dL (2.2-4.0); Glucose, Blood 98.0 mg/dL (70-99); Potassium, Blood 3.8 mmol/L (3.5-5.5); Sodium, Blood 133.0 mmol/L (136-145); Total Protein, Blood 8.2 g/dL (6.4-8.2)
[2025-05-05] MEDS ORDERED: NARCAN4 M1 (11:52)
== END 2025-05-05 13:01 | disposition home or self-care (01) ==
LOC: ER 10:58
PROVIDERS: Emergency Medicine
DX: Z04.3 Encounter for examination and observation following other accident (principal); F19.90 Other psychoactive substance use, unspecified, uncomplicated; M25.559 Pain in unspecified hip; F43.10 Post-traumatic stress disorder, unspecified; F17.210 Nicotine dependence, cigarettes, uncomplicated; Z79.899 Other long term (current) drug therapy; Z88.5 Allergy status to narcotic agent; Z88.8 Allergy status to other drugs, medicaments and biological substances
CPT/HCPCS: 36415; 80053; 85025; 99283